=== PATIENT | female | born 1950 | race Hispanic/Latino ===

== ENCOUNTER 2016-11-20 14:26 | Emergency (ER) | payer MEDICARE ==
[2016-11-20 14:32] VITALS: BP 134/78; PULSE 96; RESP 18; TEMP 97.6; O2SAT 100
[2016-11-20] MEDS ORDERED: Lidocaine 1% (10 ml) Inj INFIL STA (14:51)
[2016-11-20] MEDS ORDERED: Lidocaine 1% Inj (20ml) ONE (14:55)
[2016-11-20] MEDS ORDERED: TDAP Vaccine 0.5 mL Syr IM ONE (15:37)
--- NOTE | 2016-11-20 15:46 | ED PDOC ---
HPI: Trauma/Fall - HPI Time Seen by Provider: 11/20/16 14:41 Chief Complaint (Nursing): Trauma Chief Complaint (Provider): Trauma - Multisystem History Per: Patient History/Exam Limitations: no limitations Injury Occurred (Timing): Just Before Arrival Location Of Injury: Left: Face (Left cheek and upper lip ), Anterior: Face Additional Complaint(s): 14:41 Pilar Virk, 66 year old female, presents to the ED with an injury to her face occurring after she tripped on a sidewalk just prior to arrival. She experienced an abrasion on her upper lip and left cheek as well as a laceration on the inside of her upper lip. The patient denies any loss of consciousness following the accident. Tetanus vaccination is not up to date. PMD: None provided Past Medical History Reviewed: Historical Data, Nursing Documentation, Vital Signs Vital Signs: Last Vital Signs Temp 97.6 F 11/20/16 14:29 Pulse 96 H 11/20/16 14:29 Resp 18 11/20/16 14:29 BP 134/78 11/20/16 14:29 Pulse Ox 100 11/20/16 14:29 - Medical History PMH: Hyperlipidemia, Hyperthyroidism - Family History Family History: States: Unknown Family Hx - Immunization History Hx Tetanus Toxoid Vaccination: No (Not up to date) - Allergies Allergies/Adverse Reactions: Allergies Allergy/AdvReac Type Severity Reaction Status Date / Time Sulfa (Sulfonamide Allergy RASH Verified 11/20/16 14:29 Antibiotics) Review of Systems ENT: Positive for: Other (abrasion to upper lip/left cheek; laceration on inside of upper lip ) Gastrointestinal: Negative for: Vomiting Neurological: Negative for: Other (Denies any LOC) Physical Exam - Reviewed Nursing Documentation Reviewed: Yes Vital Signs Reviewed: Yes - Physical Exam Appears: Positive for: No Acute Distress Head Exam: Positive for: ATRAUMATIC, NORMOCEPHALIC Skin: Positive for: Normal Color, Warm, Dry Eye Exam: Positive for: Normal appearance, EOMI, PERRL ENT: Positive for: Other (abrasion on upper lip/left cheek; laceration on inside of upper lip; dentition intact) Neck: Positive for: Normal, Painless ROM, Supple Neurologic/Psych: Positive for: Alert, nutritionalist II-XII (intact), Oriented, Gait ( steady). Negative for: Motor/Sensory Deficits - ECG O2 Sat by Pulse Oximetry: 100 (RA) Pulse Ox Interpretation: Normal Medical Decision Making Medical Decision Makin:41 Initial Impression: Lip laceration and abrasion to upper lip and left cheek. Initial Plan: * Laceration repair * TDAP 0.5 mL IM Laceration repair performed by [employer] student, under the direct supervision of this provider, see procedure note for additional details. Scribe Attestation: Documented by Cece Baumann, training under Evelyn Zimmerman, acting as a scribe for Cynthia Archuleta PA-C. Provider Scribe Attestation: All medical record entries made by the Scribe were at my direction and personally dictated by me. I have reviewed the chart and agree that the record accurately reflects my personal performance of the history, physical exam, medical decision making, and the department course for this patient. I have also personally directed, reviewed, and agree with the discharge instructions and disposition. Procedures - Time-Out Type of Procedure: Laceration repair Site of Procedure: Inside of upper lip Correct Patient (with visual ID + MR# on ID Band): Yes Correct Procedure: Yes Correct Site Marked: Yes PA/Tech: [employer] student Ellen Hidalgo, under direct supervision of Cynthia Archuleta PA-C - Laceration/Wound Repair Inside of Upper Lip Wound Length (cm): 1.5 Wound's Depth, Shape: superficial, irregular Wound Explored: clean Betadine Prep?: Yes Anesthesia: 1% Lidocaine Volume Anesthetic (ccs): 1 (unable to enter non-integer value; 0.5 cc used) Wound Repaired With: Sutures Suture Size/Type: 5:0 (chromic) Number of Sutures: 4 Layer Closure?: No Wound Complexity: Simple Sterile Dressing Applied?: No Splint Applied?: No Sling Applied?: No Progress: Good approximation. Patient tolerated procedure well with no immediate complications. Disposition - Clinical Impression Clinical Impression: Head injury, Lip laceration, Tetanus toxoid vaccination administered at current visit - Disposition Referrals: [facility] [Outside] Disposition: Routine/Home Disposition Time: 16:29 Condition: STABLE Additional Instructions: Ice area. Motrin for pain. F/u as needed. Instructions: Care For Your Absorbable Stitches (ED)
== END 2016-11-20 16:30 | disposition home or self-care (01) ==
LOC: H.ER 14:26
DX: S09.90XA Unspecified injury of head, initial encounter (principal); S01.511A Laceration without foreign body of lip, initial encounter; Z23 Encounter for immunization; W01.0XXA Fall on same level from slipping, tripping and stumbling without subsequent striking against object, initial encounter; Y93.01 Activity, walking, marching and hiking; Y92.480 Sidewalk as the place of occurrence of the external cause

== ENCOUNTER 2017-10-17 18:21 | Emergency (ER) | payer MEDICARE ==
[2017-10-17 18:34] VITALS: BP 130/87; PULSE 107; RESP 16; TEMP 100.4; O2SAT 98
[2017-10-17] MEDS ORDERED: Sodium Chloride 0.9% 1,000 ML IV STA (19:01)
[2017-10-17 19:45] LABS: BASO % 0.2 % (0.0-2.0); HEMOGLOBIN 11.8 g/dL (12.0-16.0); LYMPH # 0.5 K/uL (1.0-4.3); LYMPH % 3.6 % (20.0-40.0); MEAN CORPUSCULAR HEMOGLOBIN 29.2 pg (27.0-31.0); MEAN CORPUSCULAR HGB CONC 33.5 g/dL (33.0-37.0); MEAN PLATELET VOLUME 8.4 fl (7.2-11.7); MONO # 0.7 K/uL (0.0-0.8); MONO % 4.8 % (0.0-10.0); NEUT # 13.7 K/uL (1.8-7.0); NEUT % 91.4 % (50.0-75.0); PLATELET COUNT 299 K/uL (130-400); RBC 4.05 Mil/uL (3.80-5.20); RED CELL DISTRIBUTION WIDTH 12.7 % (11.5-14.5)
[2017-10-17 19:58] LABS: ALB/GLOB RATIO 1.1 (1.0-2.1); ALBUMIN 3.6 g/dL (3.5-5.0); ALT/SGPT 58 U/L (9-52); AST/SGOT 28 U/L (14-36); BLOOD UREA NITROGEN 17 mg/dl (7-17); CALCIUM 8.7 mg/dL (8.4-10.2); GFR AFRICAN-AMERICAN > 60; GFR NON-AFRICAN AMERICAN > 60
[2017-10-17 21:30] LABS: ANISOCYTOSIS SLIGHT; BANDS 3 % (0-2); HYPOCHROMIC SLIGHT; LYMPHOCYTE 6 % (20-50); MICROCYTOSIS SLIGHT; MONOCYTE 5 % (0-10); NEUTROPHIL 86 % (42-75); PLATELET ESTIMATE NORMAL (NORMAL); POIKILOCYTOSIS SLIGHT; TOTAL CELLS COUNTED 100
--- NOTE | 2017-10-17 21:53 | ED PDOC ---
HPI: Abdomen Time Seen by Provider: 10/17/17 18:36 Chief Complaint (Nursing): GI Problem Chief Complaint (Provider): GI Problem History Per: Patient History/Exam Limitations: no limitations Onset/Duration Of Symptoms: Days Current Symptoms Are (Timing): Still Present Additional Complaint(s): 67 y/o female with no significant past medical history, who presents to the ED for evaluation of nausea and vomiting x1 day. Patient reports she had a pancreatic cyst removed last week by Dr. Schneider in [facility]. Patient also reports low grade fever. Denies urinary or respiratory symptoms. Denies other medical problems. PMD: Dr. Schneider [phone] Past Medical History Reviewed: Historical Data, Nursing Documentation, Vital Signs Vital Signs: Last Vital Signs Temp 100.4 F H 10/17/17 18:29 Pulse 107 H 10/17/17 18:29 Resp 16 10/17/17 18:29 BP 130/87 10/17/17 18:29 Pulse Ox 98 10/17/17 21:53 - Medical History PMH: Hyperlipidemia, Hyperthyroidism - Surgical History Other surgeries: ovarian cyst removal - Family History Family History: States: Unknown Family Hx - Immunization History Hx Tetanus Toxoid Vaccination: No (Not up to date) - Allergies Allergies/Adverse Reactions: Allergies Allergy/AdvReac Type Severity Reaction Status Date / Time Sulfa (Sulfonamide Allergy RASH Verified 10/17/17 18:28 Antibiotics) Review of Systems ROS Statement: Except As Marked, All Systems Reviewed And Found Negative Constitutional: Positive for: Fever Respiratory: Negative for: Cough, Shortness of Breath Gastrointestinal: Positive for: Nausea, Vomiting. Negative for: Abdominal Pain Genitourinary Female: Negative for: Dysuria, Frequency, Incontinence Physical Exam - Reviewed Nursing Documentation Reviewed: Yes Vital Signs Reviewed: Yes - Physical Exam Appears: Positive for: Non-toxic, No Acute Distress Head Exam: Positive for: ATRAUMATIC, NORMAL INSPECTION, NORMOCEPHALIC Skin: Positive for: Normal Color, Warm, Dry. Negative for: Rash Eye Exam: Positive for: EOMI, Normal appearance, PERRL ENT: Positive for: Other (mucous membranes dry) Neck: Positive for: Normal, Painless ROM, Supple Cardiovascular/Chest: Positive for: Regular Rate, Rhythm. Negative for: Murmur Respiratory: Positive for: Normal Breath Sounds. Negative for: Respiratory Distress Gastrointestinal/Abdominal: Positive for: Normal Exam, Bowel Sounds, Soft. Negative for: Tenderness Back: Positive for: Normal Inspection. Negative for: L CVA Tenderness, R CVA Tenderness, Vertebral Tenderness Extremity: Positive for: Normal ROM. Negative for: Pedal Edema, Deformity Neurologic/Psych: Positive for: Alert, Oriented. Negative for: Motor/Sensory Deficits - Laboratory Results Result Diagrams: 10/17/17 19:35 10/17/17 19:35 - ECG O2 Sat by Pulse Oximetry: 98 (RA) Pulse Ox Interpretation: Normal Medical Decision Making Medical Decision Making: Time: 19:00 Initial Impression: nausea and vomiting Initial Plan: --CMP --CBC w/ differential --Sodium Chloride 1,000 mls/hr --Reevaluation Time: 20:30 --Spoke with Dr. Veliz ([phone]), patient's surgeon in [facility], who said to check patient's urine and is not concerned about patient's borderline fever. --Urine C&S --Urinalysis --Blood culture --Reevaluation Scribe Attestation: Documented by Hugh Dunn, acting as a scribe for Ej Estrada MD. Provider Scribe Attestation: All medical record entries made by the Scribe were at my direction and personally dictated by me. I have reviewed the chart and agree that the record accurately reflects my personal performance of the history, physical exam, medical decision making, and the department course for this patient. I have also personally directed, reviewed, and agree with the discharge instructions and disposition. Disposition - Disposition Forms: [employer] (Citizen [place])
[2017-10-17 22:07] LABS: SQUAMOUS EPITHIAL 5 /hpf (0-5); URINE BACTERIA RARE (<OCC); URINE BILIRUBIN NEGATIVE (NEGATIVE); URINE BLOOD NEGATIVE (NEGATIVE); URINE CLARITY SLIGHTY-CLOUDY (Clear); URINE COLOR YELLOW (YELLOW); URINE GLUCOSE (UA) NEG (Normal); URINE LEUKOCYTE ESTERASE NEG Leu/uL (Negative); URINE PROTEIN NEGATIVE (NEGATIVE)
== END 2017-10-17 22:19 | disposition home or self-care (01) ==
LOC: H.ER 18:21
DX: R11.2 Nausea with vomiting, unspecified (principal)

== ENCOUNTER 2017-10-20 09:10 | Inpatient (IN) | payer MEDICARE ==
[2017-10-20] MEDS ORDERED: Sodium Chloride 0.9% 1,000 ML IV STA ×2 (09:44→12:16)
--- NOTE | 2017-10-20 09:57 | ED PDOC ---
HPI: Abdomen Time Seen by Provider: 10/20/17 09:24 Chief Complaint (Nursing): Fever History Per: Patient, EMS History/Exam Limitations: no limitations Onset/Duration Of Symptoms: Other (x this morning) Current Symptoms Are (Timing): Still Present Additional Complaint(s): Ms. Quezada is a 67 year old female who presents to the ED via EMS complaining of fever, nausea and drainage from surgical wound since this morning. Temperature measured 102.6 at home. Patient is s/p pancreatic head re-section for pancreatic cyst performed on October 07 at [facility]. Followed up with surgeon. Been on cephalexin post-op. Denies cough, dysuria. Normal bowel movement post-op PMD: Jose L Cho Past Medical History Reviewed: Historical Data, Nursing Documentation, Vital Signs Vital Signs: Last Vital Signs Temp 98.7 F 10/20/17 12:06 Pulse 122 H 10/20/17 11:44 Resp 19 10/20/17 11:44 BP 110/64 10/20/17 11:44 Pulse Ox 99 10/20/17 13:32 - Medical History PMH: Hyperlipidemia, Hyperthyroidism - Surgical History Other surgeries: pancreatic resection - Family History Family History: States: Unknown Family Hx - Immunization History Hx Tetanus Toxoid Vaccination: No (Not up to date) - Home Medications Home Medications: Ambulatory Orders Medication Instructions Recorded Cephalexin [Keflex] 1 cap PO Q12H 10/20/17 Cholecalciferol (Vitamin D3) 1 tab PO QWK 10/20/17 [Vitamin D3] Docusate Sodium [Colace] 1 cap PO TID 10/20/17 Famotidine [Pepcid] 40 mg PO DAILY 10/20/17 Lactobacillus Combination No.8 1 cap OD DAILY 10/20/17 [Adult Probiotic] Levothyroxine [Synthroid] 50 mcg PO DAILY 10/20/17 Lipase/Protease/Amylase [Creon Dr 1 cap PO TID 10/20/17 24,000 Units Capsule] Metoclopramide [Reglan] 1 tab PO Q8H PRN 10/20/17 Multivit-Minerals/Ferrous Fum 2 tbs PO DAILY 10/20/17 [Complete Multivit-Mineral Liq] Oxycodone HCl/Acetaminophen 1 tab PO Q4H PRN MDD 6 tabs 10/20/17 [Oxycodone-Acetaminophen 5-325] Simvastatin [Zocor] 20 mg PO DAILY 10/20/17 - Allergies Allergies/Adverse Reactions: Allergies Allergy/AdvReac Type Severity Reaction Status Date / Time Sulfa (Sulfonamide Allergy RASH Verified 10/20/17 09:14 Antibiotics) Review of Systems ROS Statement: Except As Marked, All Systems Reviewed And Found Negative Constitutional: Positive for: Fever Respiratory: Negative for: Cough Gastrointestinal: Positive for: Nausea, Other (Drainge from surgical wound s/p pancreatic resection) Genitourinary Female: Negative for: Dysuria Physical Exam - Reviewed Nursing Documentation Reviewed: Yes Vital Signs Reviewed: Yes - Physical Exam ENT: Positive for: Other (Mucous membrane is dry) Cardiovascular/Chest: Positive for: Tachycardia (135 bpm), Other (Regular rhythm ) Respiratory: Positive for: Normal Breath Sounds (Lungs clear bilaterally) Gastrointestinal/Abdominal: Positive for: Soft, Other (Erythema and tenderness at drainage site. Surgical wound intact. Mild yellow discharged from drainage site.) Extremity: Positive for: Normal ROM. Negative for: Calf Tenderness, Swelling Neurologic/Psych: Positive for: Alert, Oriented (x 3). Negative for: Motor/ Sensory Deficits - Laboratory Results Result Diagrams: 10/20/17 10:25 10/20/17 10:25 - ECG O2 Sat by Pulse Oximetry: 99 (RA) Pulse Ox Interpretation: Normal Medical Decision Making Medical Decision Making: Time: 09:43 Plan: - VBG Shock Panel - CT Abdominal and Pelvis IV Contrast Only - EKG - CBC - Portable Chest X-Ray - Sodium Chloride 0.9% 1,000 ml IV 200 mls/hr - Tylenol 325 mg Tab - Blood Culture - Urine Culture Time: 10:15 - Vancomycin Inj 1 gm Sodium Chloride 0.9% 250 ml IVPB ONCE - Zosyn 3.375 gm Sodium Chloride 0.9% 100 ml IVPB Q6 Time: 10:25 - Blood Culture Time: 11:32 - K-Dur 20 mEq ER Tab Time: 12:00 - Wound Culture and Gram Stain Time: 13:16 CT Abdominal and Pelvis IV Contrast Only FINDINGS: LOWER THORAX: There appears to be some minor bibasilar atelectasis and/or scarring. No focal consolidation. No evidence of effusion or basilar pneumothorax. LIVER: The liver is of borderline/mildly enlarged measuring approximately 19 cm in the CC dimension. There appears to be some mild fatty hepatic infiltration. To recent cholecystectomy as the gallbladder is not seen with any certainty. Clinical correlation with surgical history. There is a large approximately 4.0 x 3.65 x 3.2 cm elliptical shaped low- attenuation lesion within the left lobe liver that exhibits of lobulated borders and what appears represent some peripheral enhancement . Findings may represent a the large hemangioma. Follow-up triple phase CT scan of the liver could be performed to confirm on last there are prior imaging studies that were dedicated to work this lesion up in the past presumably at outside institutions as no prior examinations are available. Additionally there are multiple small round/elliptical shaped low-attenuation lesions scattered throughout the hepatic parenchyma May of which are too small characterize and could represent cysts. Note however that the next largest focus on is located in the left lobe of the liver and dorsal to the aforementioned suspected hemangioma measuring approximately approximately 17.6 mm however this focus exhibits Hounsfield units in the mid teens. GALLBLADDER AND BILE DUCTS: Gallbladder is not seen with any certainty. Clinical correlation with surgical history recommended PANCREAS: Status post resection pancreatic head. There is a small approximately 7.7 x 4.3 mm elliptical shaped low-attenuation focus in the pancreatic tail which is of uncertain etiology though could represent localized dilatation of the pancreatic duct which is visible of. The possibility of a cystic benign or malignant lesion of the pancreas not excluded. SPLEEN: Spleen exhibits normal size and attenuation pattern without mass collection or calcification. ADRENALS: Slightly nodular appearing adrenal glands bilaterally. Followup interval recommended to assess stability. KIDNEYS AND URETERS: Kidneys demonstrate symmetric nephrograms. There appears to be a tiny nonobstructing calcification upper pole right kidney. No evidence of hydronephrosis. Small approximately 10 mm elliptical shaped low-attenuation focus anterior cortex mid pole left kidney that may represent a hyperdense cyst on with Hounsfield units in the low 20s. BLADDER: Urinary bladder is incompletely distended which in part accounts for thick- walled appearance however small amount of air within the nondependent anterior portion of the urinary bladder is present. Cystitis must be considered unless there has been recent instrumentation. REPRODUCTIVE: Small small amount of free fluid in the adjacent to the uterus. APPENDIX: What could represent normal appendix seen on axial image number [id number]. No evidence to suggest acute appendicitis BOWEL: Evaluation of the bowel is limited due to the lack of oral contrast material. There is a distended thick-walled C-shaped loop of what is felt to represent proximal small bowel which may represent a portion of the duodenum and jejunum possibly mobilized during the prior recent surgery. However the exact segment of bowel is uncertain, and this could possibly a blind segment of bowel as there is a apparent linear suture line along or abutting the left posterior margin of this distended loop of bowel. There also appears to be some infiltration and fluid in the surgical bed of the since resected head of the pancreas and adjacent to the portal and splenic confluence. In addition, there is a small tract along the left parasagittal upper anterior abdominal wall which presumably represented a residual drainage tract from which a catheter was recently removed. Air and suspected small amount of fluid is felt be present seen along the course of the irregular tract with a small amount of air an fluid subjacent to the tract within the intraperitoneal cavity. There is mild on fusiform thickening and low attenuation of the left-sided rectus abdominis muscle likely postoperative in nature. Large amount stool seen throughout the colon consistent with fecal retention/ constipation. PERITONEUM: As above. LYMPH NODES: Unremarkable. No enlarged lymph nodes. VASCULATURE: No evidence of abdominal aortic or iliac artery aneurysms. The. BONES: No fracture or destructive lesion. OTHER FINDINGS: None. IMPRESSION: Status post resection head of the pancreas. Gallbladder is not seen with certainty ; clinical correlation with surgical history recommended. There is mild intrahepatic biliary ductal dilatation There is a distended thick-walled C-shaped loop of what is felt to represent proximal small bowel which may represent a portion of the duodenum and jejunum possibly mobilized during the prior recent surgery. However the exact segment of bowel is uncertain, and this could possibly a blind segment of bowel as there is a apparent linear suture line along or abutting the left posterior margin of this distended loop of bowel. There also appears to be some infiltration and fluid in the surgical bed of the since resected head of the pancreas and adjacent to the portal and splenic confluence. In addition, there is a small tract along the left parasagittal upper anterior abdominal wall which presumably represented a residual drainage tract from which a catheter was recently removed. Air and suspected small amount of fluid is felt be present seen along the course of the irregular tract with a small amount of air an fluid subjacent to the tract within the intraperitoneal cavity. There is mild on fusiform thickening and low attenuation of the left-sided rectus abdominis muscle likely postoperative in nature. Small amount of free fluid noted within the pelvis. Multiple low-attenuation lesions the largest in the left lobe probably represents hemangioma however followup on three-phase CT scan liver could be performed to confirm on less on recent CT scan performed. There is a small low-attenuation focus within the posterior pancreatic body/ tail region that probably represents localized prominence of the pancreatic duct however the possibility of a cystic benign or malignant lesion not excluded. Follow-up study studies at interval recommended. Note these findings were discussed with Dr. Aguilar at approximately 12:50 p.m. with written down and read back verification. Findings consistent with constipation. Thick-walled urinary bladder with small amount of intraluminal air ; rule out cystitis with urinalysis correlation. See above discussion for additional details and findings. Discussed with Dr. Nick carbajal for surgeon Dr. Heart at [facility]. Agrees to have pt admitted At [facility] as theie is no acute need for surgical intervention. Pt can be treated with IV antibiotics and once defervesced x 24 hrs can be followed by surgery at [facility]. Scribe Attestation: Documented by Antonino Andrews, acting as a scribe for Sai Aguilar MD Provider Scribe Attestation: All medical record entries made by the Scribe were at my direction and personally dictated by me. I have reviewed the chart and agree that the record accurately reflects my personal performance of the history, physical exam, medical decision making, and the department course for this patient. I have also personally directed, reviewed, and agree with the discharge instructions and disposition. Disposition - Clinical Impression Clinical Impression: Sepsis, Intra-abdominal infection - Patient ED Disposition Is Patient to be Admitted: Yes - Disposition Disposition Time: 13:49 Condition: FAIR Forms: [employer] ([place]ian) - Pt Status Changed To: Hospital Disposition Of: Inpatient - Admit Certification Admit to Inpatient:: After my assessment, the patient will require hospitalization for at least two midnights. This is because of the severity of symptoms shown, intensity of services needed, and/or the medical risk in this patient being treated as an outpatient. - POA Present On Arrival: None
[2017-10-20] MEDS ORDERED: Iohexol 300 100 ML IJ ONE (10:01)
[2017-10-20 10:08] LABS: VENOUS BLOOD GAS PCO2 32 mmHg (40-60); VENOUS BLOOD GAS PO2 28 mm/Hg (30-55); VENOUS BLOOD PH 7.51 (7.32-7.43)
[2017-10-20] MEDS ORDERED: Piperacillin/Tazobact 3.375 gm Inj IVPB ONE ×2 (10:26→16:15)
[2017-10-20] MEDS ORDERED: Piperacillin/Tazobact 3.375 GM in Sodium Chloride 0.9% 100 ML IVPB STA (10:28)
[2017-10-20 10:56] LABS: BASO % 0.2 % (0.0-2.0); EOS % 0.1 % (0.0-4.0); HEMOGLOBIN 11.7 g/dL (12.0-16.0); LYMPH # 0.1 K/uL (1.0-4.3); LYMPH % 2.6 % (20.0-40.0); MEAN CELL VOLUME 86.3 fl (81.0-99.0); MEAN CORPUSCULAR HEMOGLOBIN 29.1 pg (27.0-31.0); MEAN CORPUSCULAR HGB CONC 33.8 g/dL (33.0-37.0); MEAN PLATELET VOLUME 9.1 fl (7.2-11.7); MONO % 0.6 % (0.0-10.0); NEUT # 4.9 K/uL (1.8-7.0); NEUT % 96.5 % (50.0-75.0); NRBC % 0.1 % (0.0-0.0); PLATELET COUNT 262 K/uL (130-400); RED CELL DISTRIBUTION WIDTH 12.9 % (11.5-14.5)
--- NOTE | 2017-10-20 11:14 | RAD ---
HISTORY: Cough COMPARISON: No prior study available for comparison FINDINGS: LUNGS: Bilateral nodular densities in the right lower lobe at and left lateral chest wall consistent with nipple shadow artifact. Suspect minimal biapical pleural thickening left greater than right PLEURA: No significant pleural effusion identified, no pneumothorax apparent. CARDIOVASCULAR: Normal. OSSEOUS STRUCTURES: Prominent appearing right 1st costochondral junction felt be present. VISUALIZED UPPER ABDOMEN: Normal. OTHER FINDINGS: None. IMPRESSION: No acute infiltrates.
[2017-10-20 11:26] LABS: WHITE BLOOD COUNT 5.1 K/uL (4.8-10.8)
[2017-10-20 11:29] LABS: BLOOD UREA NITROGEN 14 mg/dl (7-17); GFR AFRICAN-AMERICAN > 60; GFR NON-AFRICAN AMERICAN > 60
[2017-10-20 11:30] LABS: ALBUMIN 3.3 g/dL (3.5-5.0); ALT/SGPT 69 U/L (9-52); AST/SGOT 80 U/L (14-36); CALCIUM 8.4 mg/dL (8.4-10.2)
[2017-10-20] MEDS ORDERED: Potassium Chloride 20 mEq ER Tab PO ONE ×2 (11:32→12:15)
[2017-10-20 12:49] LABS: BANDS 4 % (0-2); LYMPHOCYTE 1 % (20-50); MONOCYTE 1 % (0-10); NEUTROPHIL 94 % (42-75); TOTAL CELLS COUNTED 100
[2017-10-20 12:54] LABS: HYPOCHROMIC SLIGHT; TARGET CELLS SLIGHT
[2017-10-20 12:55] LABS: PLATELET ESTIMATE NORMAL (NORMAL); POLYCHROMIC SLIGHT
--- NOTE | 2017-10-20 13:18 | CT ---
PROCEDURE: CT scan abdomen pelvis dated 10/20/2017 HISTORY: post op r/o abscess COMPARISON: No prior study available for comparison TECHNIQUE: Contiguous axial images of the abdomen and pelvis performed following oral and intravenous injection of approximately 95 cc Omnipaque 300 contrast material. Two dimensional sagittal and coronal reformats generated. Radiation dose: Total exam DLP = This CT exam was performed using one or more of the following dose reduction techniques: Automated exposure control, adjustment of the mA and/or kV according to patient size, and/or use of iterative reconstruction technique. FINDINGS: LOWER THORAX: There appears to be some minor bibasilar atelectasis and/or scarring. No focal consolidation. No evidence of effusion or basilar pneumothorax. LIVER: The liver is of borderline/mildly enlarged measuring approximately 19 cm in the CC dimension. There appears to be some mild fatty hepatic infiltration. To recent cholecystectomy as the gallbladder is not seen with any certainty. Clinical correlation with surgical history. There is a large approximately 4.0 x 3.65 x 3.2 cm elliptical shaped low-attenuation lesion within the left lobe liver that exhibits of lobulated borders and what appears represent some peripheral enhancement . Findings may represent a the large hemangioma. Follow-up triple phase CT scan of the liver could be performed to confirm on last there are prior imaging studies that were dedicated to work this lesion up in the past presumably at outside institutions as no prior examinations are available. Additionally there are multiple small round/elliptical shaped low-attenuation lesions scattered throughout the hepatic parenchyma May of which are too small characterize and could represent cysts. Note however that the next largest focus on is located in the left lobe of the liver and dorsal to the aforementioned suspected hemangioma measuring approximately approximately 17.6 mm however this focus exhibits Hounsfield units in the mid teens. GALLBLADDER AND BILE DUCTS: Gallbladder is not seen with any certainty. Clinical correlation with surgical history recommended PANCREAS: Status post resection pancreatic head. There is a small approximately 7.7 x 4.3 mm elliptical shaped low-attenuation focus in the pancreatic tail which is of uncertain etiology though could represent localized dilatation of the pancreatic duct which is visible of. The possibility of a cystic benign or malignant lesion of the pancreas not excluded. SPLEEN: Spleen exhibits normal size and attenuation pattern without mass collection or calcification. ADRENALS: Slightly nodular appearing adrenal glands bilaterally. Followup interval recommended to assess stability. KIDNEYS AND URETERS: Kidneys demonstrate symmetric nephrograms. There appears to be a tiny nonobstructing calcification upper pole right kidney. No evidence of hydronephrosis. Small approximately 10 mm elliptical shaped low-attenuation focus anterior cortex mid pole left kidney that may represent a hyperdense cyst on with Hounsfield units in the low 20s. BLADDER: Urinary bladder is incompletely distended which in part accounts for thick-walled appearance however small amount of air within the nondependent anterior portion of the urinary bladder is present. Cystitis must be considered unless there has been recent instrumentation. REPRODUCTIVE: Small small amount of free fluid in the adjacent to the uterus. APPENDIX: What could represent normal appendix seen on axial image number [id number]. No evidence to suggest acute appendicitis BOWEL: Evaluation of the bowel is limited due to the lack of oral contrast material. There is a distended thick-walled C-shaped loop of what is felt to represent proximal small bowel which may represent a portion of the duodenum and jejunum possibly mobilized during the prior recent surgery. However the exact segment of bowel is uncertain, and this could possibly a blind segment of bowel as there is a apparent linear suture line along or abutting the left posterior margin of this distended loop of bowel. There also appears to be some infiltration and fluid in the surgical bed of the since resected head of the pancreas and adjacent to the portal and splenic confluence. In addition, there is a small tract along the left parasagittal upper anterior abdominal wall which presumably represented a residual drainage tract from which a catheter was recently removed. Air and suspected small amount of fluid is felt be present seen along the course of the irregular tract with a small amount of air an fluid subjacent to the tract within the intraperitoneal cavity. There is mild on fusiform thickening and low attenuation of the left-sided rectus abdominis muscle likely postoperative in nature. Large amount stool seen throughout the colon consistent with fecal retention/constipation. PERITONEUM: As above. LYMPH NODES: Unremarkable. No enlarged lymph nodes. VASCULATURE: No evidence of abdominal aortic or iliac artery aneurysms. The. BONES: No fracture or destructive lesion. OTHER FINDINGS: None. IMPRESSION: Status post resection head of the pancreas. Gallbladder is not seen with certainty ; clinical correlation with surgical history recommended. There is mild intrahepatic biliary ductal dilatation There is a distended thick-walled C-shaped loop of what is felt to represent proximal small bowel which may represent a portion of the duodenum and jejunum possibly mobilized during the prior recent surgery. However the exact segment of bowel is uncertain, and this could possibly a blind segment of bowel as there is a apparent linear suture line along or abutting the left posterior margin of this distended loop of bowel. There also appears to be some infiltration and fluid in the surgical bed of the since resected head of the pancreas and adjacent to the portal and splenic confluence. In addition, there is a small tract along the left parasagittal upper anterior abdominal wall which presumably represented a residual drainage tract from which a catheter was recently removed. Air and suspected small amount of fluid is felt be present seen along the course of the irregular tract with a small amount of air an fluid subjacent to the tract within the intraperitoneal cavity. There is mild on fusiform thickening and low attenuation of the left-sided rectus abdominis muscle likely postoperative in nature. Small amount of free fluid noted within the pelvis. Multiple low-attenuation lesions the largest in the left lobe probably represents hemangioma however followup on three-phase CT scan liver could be performed to confirm on less on recent CT scan performed. There is a small low-attenuation focus within the posterior pancreatic body/tail region that probably represents localized prominence of the pancreatic duct however the possibility of a cystic benign or malignant lesion not excluded. Follow-up study studies at interval recommended. Note these findings were discussed with Dr. Aguilar at approximately 12:50 p.m. with written down and read back verification. Findings consistent with constipation. Thick-walled urinary bladder with small amount of intraluminal air ; rule out cystitis with urinalysis correlation. See above discussion for additional details and findings.
[2017-10-20 14:05] LABS: PLATELET CLUMPS PRESENT
--- NOTE | 2017-10-20 14:41 | CP.PCM.HP ---
History of Present Illness - History of Present Illness History of Present Illness: 67 yo female with history of Hypothyroidism, GERD and Pancreatic Cyst came in because of fever, chills, nausea and vomiting since last night. Patient had Whipple's procedure at [facility] in October 07 because of Pancreatic Cyst which was getting bigger. Cyst turned out to be benign. Post op days were uneventful and she was discharged in stable condition with a surgical drain on October 14. 2 days after discharge, patient started to have nausea and vomiting associated with low grade fever. She was seen in [facility] ER on October 17 and was found to be dehydrated. Patient's surgeon, Dr Veliz was called and did not advise admission but recommended just to hydrate patient. She was seen the next day by the surgeon and the drain was removed. She was started on PO Cephalexin 500mg BID. Last night nausea and vomiting recurred accompanied with fever and chills. The site of the drain tube also continued to leak brownish fluid. Patient denied abdominal pain or diarrhea. Present on Admission - Present on Admission Any Indicators Present on Admission: No History of DVT/PE: No History of Uncontrolled Diabetes: No Urinary Catheter: No Decubitus Ulcer Present: No Review of Systems - Review of Systems All systems: reviewed and no additional remarkable complaints except (aside from those mentioned above, 12 point system review were negative by me) Past Patient History - Tetanus Immunizations Tetanus Immunization: Unknown - Past Social History Smoking Status: Never Smoked Alcohol: None Drugs: Denies Home Situation {Lives}: With Family - CARDIAC Hx Cardiac Disorders: No - PULMONARY Hx Respiratory Disorders: No - NEUROLOGICAL Hx Neurological Disorder: No - HEENT Hx HEENT Problems: No - RENAL Hx Chronic Kidney Disease: No - ENDOCRINE/METABOLIC Hx Hyperthyroidism: Yes - HEMATOLOGICAL/ONCOLOGICAL Hx Blood Disorders: No - INTEGUMENTARY Hx Dermatological Problems: No - MUSCULOSKELETAL/RHEUMATOLOGICAL Hx Musculoskeletal Disorders: No - GASTROINTESTINAL Hx Gastroesophageal Reflux: Yes Other/Comment: pancreatic cyst - GENITOURINARY/GYNECOLOGICAL Hx Genitourinary Disorders: No - PSYCHIATRIC Hx Psychophysiologic Disorder: No Hx Substance Use: No - SURGICAL HISTORY Hx Surgeries: Yes Other/Comment: whipple procedure 10/07/17 - ANESTHESIA Hx Anesthesia: Yes Hx Anesthesia Reactions: No Meds Allergies/Adverse Reactions: Allergies Allergy/AdvReac Type Severity Reaction Status Date / Time Sulfa (Sulfonamide Allergy RASH Verified 10/20/17 09:14 Antibiotics) Physical Exam - Constitutional Appears: No Acute Distress - Head Exam Head Exam: ATRAUMATIC - Eye Exam Eye Exam: absent: Scleral icterus - ENT Exam ENT Exam: Mucous Membranes Moist - Neck Exam Neck exam: Negative for: Meningismus - Respiratory Exam Respiratory Exam: absent: Rales, Rhonchi, Wheezes, Respiratory Distress - Cardiovascular Exam Cardiovascular Exam: REGULAR RHYTHM, +S1, +S2 - GI/Abdominal Exam GI & Abdominal Exam: Soft. absent: Guarding, Tenderness Additional comments: site of removed surgical drain tube sorrounded with erythema with crusty brown drainage in the center, no tenderness - Rectal Exam Rectal Exam: Deferred - Extremities Exam Extremities exam: Negative for: calf tenderness, pedal edema - Back Exam Back exam: absent: tenderness - Neurological Exam Neurological exam: Alert, Oriented x3 - Psychiatric Exam Psychiatric exam: Normal Affect - Skin Skin Exam: Dry, Intact Results - Vital Signs Recent Vital Signs: Last Vital Signs Temp 98.7 F 10/20/17 12:06 Pulse 122 H 10/20/17 11:44 Resp 19 10/20/17 11:44 BP 110/64 10/20/17 11:44 Pulse Ox 99 10/20/17 13:50 - Labs Result Diagrams: 10/20/17 10:25 10/20/17 10:25 Labs: Laboratory Results - last 24 hr 10/20/17 10/20/17 10/20/17 10:02 10:25 10:25 WBC 5.1 D RBC 4.00 Hgb 11.7 L Hct 34.5 MCV 86.3 MCH 29.1 MCHC 33.8 RDW 12.9 Plt Count 262 MPV 9.1 Neut % (Auto) 96.5 H Lymph % (Auto) 2.6 L [place] % (Auto) 0.6 Eos % (Auto) 0.1 Baso % (Auto) 0.2 Neut # (Auto) 4.9 Lymph # (Auto) 0.1 L [place] # (Auto) 0.0 Eos # (Auto) 0.0 Baso # (Auto) 0.0 Neutrophils % (Manual) 94 H Band Neutrophils % 4 H Lymphocytes % (Manual) 1 L Monocytes % (Manual) 1 Platelet Estimate Normal Plt Clumps, EDTA Present Polychromasia Slight Hypochromasia (manual) Slight Target Cells Slight pO2 28 L VBG pH 7.51 H VBG pCO2 32 L VBG HCO3 26.3 VBG Total CO2 26.5 VBG O2 Sat (Calc) 67.4 H VBG Base Excess 3.0 H VBG Potassium 3.4 L Sodium 129.0 L 131 L Chloride 97.0 L 94 L Glucose 140 H Lactate 1.5 FiO2 21.0 Potassium 3.5 L Carbon Dioxide 25 Anion Gap 16 BUN 14 Creatinine 0.5 L Est GFR ( Amer) > 60 Est GFR (Non-Af Amer) > 60 Random Glucose 131 H Calcium 8.4 Total Bilirubin 1.0 AST 80 H D ALT 69 H Alkaline Phosphatase 156 H D Total Protein 6.7 Albumin 3.3 L Globulin 3.3 Albumin/Globulin Ratio 1.0 Lipase Venous Blood Potassium 3.4 L 10/20/17 12:40 WBC RBC Hgb Hct MCV MCH MCHC RDW Plt Count MPV Neut % (Auto) Lymph % (Auto) [place] % (Auto) Eos % (Auto) Baso % (Auto) Neut # (Auto) Lymph # (Auto) [place] # (Auto) Eos # (Auto) Baso # (Auto) Neutrophils % (Manual) Band Neutrophils % Lymphocytes % (Manual) Monocytes % (Manual) Platelet Estimate Plt Clumps, EDTA Polychromasia Hypochromasia (manual) Target Cells pO2 VBG pH VBG pCO2 VBG HCO3 VBG Total CO2 VBG O2 Sat (Calc) VBG Base Excess VBG Potassium Sodium Chloride Glucose Lactate FiO2 Potassium Carbon Dioxide Anion Gap BUN Creatinine Est GFR ( Amer) Est GFR (Non-Af Amer) Random Glucose Calcium Total Bilirubin AST ALT Alkaline Phosphatase Total Protein Albumin Globulin Albumin/Globulin Ratio Lipase 155 Venous Blood Potassium Assessment & Plan - Assessment and Plan (Free Text) Assessment: 67 yo female with history of Hypothyroidism, GERD and Pancreatic Cyst (Post Whipple's Procedure) came in because of fever, chills, nausea and vomiting since last night. 1. Infected Surgical wound Blood culture Wound culture Vancomycin 1gm IV q 12hrs Zosyn 3.375gm IV q 6hrs Bacid 1 tab PO BID surgical consult with Dr Roland 2. Hypothyroid continue Levothyroxine 3. GERD Pepcid 40mg PO daily 4. DVT prophylaxis venodyne boots while in bed
[2017-10-20] MEDS ORDERED: Ergocalciferol 50,000 Intl Units Cap PO SCH (15:15)
[2017-10-20] MEDS: Levothyroxine 50 MCG TAB PO SCH (15:20)
[2017-10-20] MEDS ORDERED: Piperacillin/Tazobact 3.375 GM in Sodium Chloride 0.9% 100 ML IVPB SCH (16:00)
[2017-10-20] MEDS: Piperacillin/Tazobact 3.375 GM in Sodium Chloride 0.9% 100 ML IVPB SCH ×2 (16:23→22:13)
[2017-10-20 16:24] LABS: URINE BACTERIA RARE (<OCC); URINE BILIRUBIN NEGATIVE (NEGATIVE); URINE BLOOD NEGATIVE (NEGATIVE); URINE CLARITY SLIGHTY-CLOUDY (Clear); URINE COLOR YELLOW (YELLOW); URINE GLUCOSE (UA) NEG (Normal); URINE LEUKOCYTE ESTERASE NEG Leu/uL (Negative); URINE PROTEIN NEGATIVE (NEGATIVE)
[2017-10-20] MEDS: AMYLASE PO SCH (17:23)
[2017-10-20] MEDS: LIPASE PO SCH (17:23)
[2017-10-20] MEDS: PROTEASE PO SCH (17:23)
[2017-10-20] MEDS: Lactated Ringer's 1,000 ML IV SCH (22:39)
--- NOTE | 2017-10-20 22:54 | CP.PCM.CON ---
History of Present Illness - History of Present Illness History of Present Illness: Surgery Consult Note. Dr. Roland 67yo F with PMHx of Hypothyroid, GERD, Pancreatic Cyst s/p whipple on 10/07/[address] Veliz at [facility] here for evaluation of nausea/ vomiting and fevers. Patient also c/o previous abdominal drain site leaking yellow/brown fluid. She states that post-operatively she has been doing well with pain but has been having bouts of nausea/vomiting off and on. She was discharged home with abdominal drain on October 14 and then abdominal drain was removed on October 18 during her first post-op follow-up visit. Since the drain was removed, she has been having yellow/brown fluid leaking form the site. She denies any abdominal pain. She does report nausea/vomiting and decreased PO intake for the past 3 days. She started having fevers and chills at home and was prescribed a course of Oral Abx on Saturday, Keflex. She reports that fevers, chills and N/V has not improved so she came in for evaluation at [facility] ED. She reports that she has another follow-up appointment with Dr. Veliz on Thr , October 24. Denies any Chest pain, no SOB. No urinary complaints. Hepatobiliary Surgeon: Dr. Veliz at [facility] PMHx: Hypothyroid, GERD, Pancreatic cyst (s/p resection, bx-benign) PSHx: Whipple (October 07, 2017 at [facility]) Family Hx: non-contributory Social Hx: Denies tobacco, Denies ETOH, Denies illicit drugs. Lives with family Allergy: Sulfa Review of Systems - Review of Systems All systems: reviewed and no additional remarkable complaints except - Constitutional Constitutional: Anorexia, Chills, Fever - Cardiovascular Cardiovascular: absent: Chest Pain, Dyspnea - Respiratory Respiratory: absent: Cough, Dyspnea - Gastrointestinal Gastrointestinal: Nausea, Vomiting. absent: Abdominal Pain - Genitourinary Genitourinary: absent: Difficulty Urinating, Dysuria - Integumentary Additional comments: Previous abdominal drain site with yellow/brown discharge Past Patient History - Tetanus Immunizations Tetanus Immunization: Unknown - Past Medical History & Family History Past Medical History?: Yes - Past Social History Smoking Status: Never Smoked Alcohol: None Drugs: Denies Home Situation {Lives}: With Family - CARDIAC Hx Cardiac Disorders: Yes - PULMONARY Hx Respiratory Disorders: No - NEUROLOGICAL Hx Neurological Disorder: No - HEENT Hx HEENT Problems: No - RENAL Hx Chronic Kidney Disease: No - ENDOCRINE/METABOLIC Hx Endocrine Disorders: Yes - HEMATOLOGICAL/ONCOLOGICAL Hx Blood Disorders: No - INTEGUMENTARY Hx Dermatological Problems: No - MUSCULOSKELETAL/RHEUMATOLOGICAL Hx Musculoskeletal Disorders: No Hx Falls: No - GASTROINTESTINAL Hx Gastroesophageal Reflux: Yes Other/Comment: pancreatic cyst - GENITOURINARY/GYNECOLOGICAL Hx Genitourinary Disorders: No - PSYCHIATRIC Hx Psychophysiologic Disorder: No Hx Substance Use: No - SURGICAL HISTORY Hx Surgeries: Yes Other/Comment: whipple procedure 10/07/17 - ANESTHESIA Hx Anesthesia: Yes Hx Anesthesia Reactions: No Meds Allergies/Adverse Reactions: Allergies Allergy/AdvReac Type Severity Reaction Status Date / Time Sulfa (Sulfonamide Allergy RASH Verified 10/20/17 09:14 Antibiotics) - Medications Medications: Current Medications Acetaminophen (Tylenol 325mg Tab) 650 mg PO Q6 PRN PRN Reason: Fever >100.4 F Last Admin: 10/20/17 20:52 Dose: 650 mg Docusate Sodium (Colace) 100 mg PO BID [facility] Last Admin: 10/20/17 16:27 Dose: 100 mg Ergocalciferol (Drisdol 50,000 Intl Units Cap) 1 cap PO QWK [facility] Home Med (Lipase/Protease/Amylase [Creon Dr 24,000 Units Capsule]) 1 cap PO TID [facility] Last Admin: 10/20/17 17:23 Dose: 1 cap Vancomycin HCl 1 gm/ Sodium (Chloride) 250 mls @ 166.667 mls/hr IVPB Q12 [facility] PRN Reason: Protocol Last Admin: 10/20/17 22:12 Dose: 166.667 mls/hr Piperacillin Sod/Tazobactam (Sod 3.375 gm/ Sodium Chloride) 100 mls @ 100 mls/ hr IVPB Q6 [facility] PRN Reason: Protocol Last Admin: 10/20/17 22:13 Dose: 100 mls/hr Lactated Ringer's (Lactated Ringer's) 1,000 mls @ 125 mls/hr IV .Q8H [facility] Stop: 10/21/17 14:29 Last Admin: 10/20/17 22:39 Dose: 125 mls/hr Lactobacillus Acidophilus (Bacid Acidophilus) 1 cap PO BID [facility] Levothyroxine Sodium (Synthroid) 50 mcg PO DAILY@0630 [facility] Last Admin: 10/20/17 15:20 Dose: Not Given Metoclopramide HCl (Reglan) 10 mg PO Q8H PRN PRN Reason: Nausea/Vomiting Last Admin: 10/20/17 16:27 Dose: 10 mg Morphine Sulfate (Morphine) 2 mg IVP Q6 PRN PRN Reason: Pain, moderate (4-7) Ondansetron HCl (Zofran Inj) 4 mg IVP Q6 PRN PRN Reason: Nausea/Vomiting Pantoprazole Sodium (Protonix Ec Tab) 40 mg PO DAILY [facility] Physical Exam - Constitutional Appears: Non-toxic, No Acute Distress - Head Exam Head Exam: ATRAUMATIC, NORMAL INSPECTION, NORMOCEPHALIC - Eye Exam Eye Exam: EOMI, Normal appearance. absent: Scleral icterus - ENT Exam ENT Exam: Mucous Membranes Moist - Cardiovascular Exam Cardiovascular Exam: RRR. absent: JVD - GI/Abdominal Exam GI & Abdominal Exam: Soft. absent: Distended, Firm, Guarding, Rigid, Tenderness Additional comments: midline surgical site well healed scar. left lower quadrant small skin opening of previous abdominal drain with yellow/ brown fluid actively draining. No tenderness. No rebound, no guarding. soft, non-distended - Extremities Exam Extremities exam: Positive for: normal inspection. Negative for: calf tenderness - Back Exam Back exam: NORMAL INSPECTION - Neurological Exam Neurological exam: Alert, Oriented x3 - Psychiatric Exam Psychiatric exam: Normal Affect, Normal Mood Results - Vital Signs Recent Vital Signs: Last Vital Signs Temp 98.9 F 10/20/17 21:52 Pulse 95 H 10/20/17 21:52 Resp 95 H 10/20/17 21:52 BP 92/47 L 10/20/17 21:52 Pulse Ox 97 10/20/17 19:24 - Labs Result Diagrams: 10/20/17 10:25 10/20/17 10:25 Labs: Laboratory Results - last 24 hr 10/20/17 10/20/17 10/20/17 10:02 10:25 10:25 WBC 5.1 D RBC 4.00 Hgb 11.7 L Hct 34.5 MCV 86.3 MCH 29.1 MCHC 33.8 RDW 12.9 Plt Count 262 MPV 9.1 Neut % (Auto) 96.5 H Lymph % (Auto) 2.6 L [place] % (Auto) 0.6 Eos % (Auto) 0.1 Baso % (Auto) 0.2 Neut # (Auto) 4.9 Lymph # (Auto) 0.1 L [place] # (Auto) 0.0 Eos # (Auto) 0.0 Baso # (Auto) 0.0 Neutrophils % (Manual) 94 H Band Neutrophils % 4 H Lymphocytes % (Manual) 1 L Monocytes % (Manual) 1 Platelet Estimate Normal Plt Clumps, EDTA Present Polychromasia Slight Hypochromasia (manual) Slight Target Cells Slight pO2 28 L VBG pH 7.51 H VBG pCO2 32 L VBG HCO3 26.3 VBG Total CO2 26.5 VBG O2 Sat (Calc) 67.4 H VBG Base Excess 3.0 H VBG Potassium 3.4 L Sodium 129.0 L 131 L Chloride 97.0 L 94 L Glucose 140 H Lactate 1.5 FiO2 21.0 Potassium 3.5 L Carbon Dioxide 25 Anion Gap 16 BUN 14 Creatinine 0.5 L Est GFR ( Amer) > 60 Est GFR (Non-Af Amer) > 60 Random Glucose 131 H Calcium 8.4 Total Bilirubin 1.0 AST 80 H D ALT 69 H Alkaline Phosphatase 156 H D Total Protein 6.7 Albumin 3.3 L Globulin 3.3 Albumin/Globulin Ratio 1.0 Lipase Venous Blood Potassium 3.4 L Urine Color Urine Clarity Urine pH Ur Specific [place] Urine Protein Urine Glucose (UA) Urine Ketones Urine Blood Urine Nitrate Urine Bilirubin Urine Urobilinogen Ur Leukocyte Esterase Urine RBC (Auto) Urine Microscopic WBC Urine Bacteria 10/20/17 10/20/17 12:40 16:09 WBC RBC Hgb Hct MCV MCH MCHC RDW Plt Count MPV Neut % (Auto) Lymph % (Auto) [place] % (Auto) Eos % (Auto) Baso % (Auto) Neut # (Auto) Lymph # (Auto) [place] # (Auto) Eos # (Auto) Baso # (Auto) Neutrophils % (Manual) Band Neutrophils % Lymphocytes % (Manual) Monocytes % (Manual) Platelet Estimate Plt Clumps, EDTA Polychromasia Hypochromasia (manual) Target Cells pO2 VBG pH VBG pCO2 VBG HCO3 VBG Total CO2 VBG O2 Sat (Calc) VBG Base Excess VBG Potassium Sodium Chloride Glucose Lactate FiO2 Potassium Carbon Dioxide Anion Gap BUN Creatinine Est GFR ( Amer) Est GFR (Non-Af Amer) Random Glucose Calcium Total Bilirubin AST ALT Alkaline Phosphatase Total Protein Albumin Globulin Albumin/Globulin Ratio Lipase 155 Venous Blood Potassium Urine Color Yellow Urine Clarity Slighty-cloudy Urine pH 6.0 Ur Specific [place] 1.017 Urine Protein Negative Urine Glucose (UA) Neg Urine Ketones Trace Urine Blood Negative Urine Nitrate Negative Urine Bilirubin Negative Urine Urobilinogen 4.0 H Ur Leukocyte Esterase Neg Urine RBC (Auto) 6 H Urine Microscopic WBC 3 Urine Bacteria Rare Assessment & Plan - Assessment and Plan (Free Text) Assessment: 67[facility] F [facility] Post-operative course complicated by fever and biliary leak. - CT scan noted Plan: - No acute general surgery intervention warranted at this time - Patient should follow-up with her hepatobiliary surgeon for further management - Continue Abx and IVF as per primary team recs Further recs as per Dr. Luan Zhong PGY1 surgery pager: [phone]
[2017-10-21] MEDS: Piperacillin/Tazobact 3.375 GM in Sodium Chloride 0.9% 100 ML IVPB SCH ×4 (04:39→22:07)
[2017-10-21 05:41] LABS: BASO % 0.2 % (0.0-2.0); EOS % 0.2 % (0.0-4.0); HEMOGLOBIN 9.1 g/dL (12.0-16.0); LYMPH # 0.4 K/uL (1.0-4.3); MEAN CELL VOLUME 86.6 fl (81.0-99.0); MEAN CORPUSCULAR HEMOGLOBIN 29.6 pg (27.0-31.0); MEAN CORPUSCULAR HGB CONC 34.2 g/dL (33.0-37.0); MEAN PLATELET VOLUME 8.9 fl (7.2-11.7); MONO # 0.4 K/uL (0.0-0.8); MONO % 4.1 % (0.0-10.0); NEUT # 9.1 K/uL (1.8-7.0); NEUT % 91.5 % (50.0-75.0); NRBC % 0.2 % (0.0-0.0); PLATELET COUNT 205 K/uL (130-400); RBC 3.07 Mil/uL (3.80-5.20); RED CELL DISTRIBUTION WIDTH 12.9 % (11.5-14.5); WHITE BLOOD COUNT 9.9 K/uL (4.8-10.8)
[2017-10-21] MEDS: Levothyroxine 50 MCG TAB PO SCH (06:02)
[2017-10-21 06:43] LABS: ALB/GLOB RATIO 0.8 (1.0-2.1); ALBUMIN 2.1 g/dL (3.5-5.0); ALT/SGPT 68 U/L (9-52); AST/SGOT 73 U/L (14-36); BLOOD UREA NITROGEN 10 mg/dl (7-17); CALCIUM 6.8 mg/dL (8.4-10.2); GFR AFRICAN-AMERICAN > 60; GFR NON-AFRICAN AMERICAN > 60
[2017-10-21 07:50] LABS: LYMPHOCYTE 4 % (20-50); MONOCYTE 2 % (0-10); NEUTROPHIL 94 % (42-75); PLATELET ESTIMATE NORMAL (NORMAL); TOTAL CELLS COUNTED 100
[2017-10-21] MEDS: LIPASE PO SCH ×3 (08:19→16:44)
[2017-10-21] MEDS: PROTEASE PO SCH ×3 (08:19→16:44)
[2017-10-21] MEDS: Pantoprazole 40 mg EC Tab PO SCH (08:19)
[2017-10-21] MEDS: AMYLASE PO SCH ×3 (08:19→16:44)
[2017-10-21] MEDS: Lactobacillus Acidophilus 500 MU Cap PO SCH ×2 (08:21→16:44)
[2017-10-21] MEDS ORDERED: Pneumococcal 23-Valent Vaccine IM ONE (09:00)
--- NOTE | 2017-10-21 09:25 | CP.PCM.PN ---
<BenjaminAdeline - Last Filed: 10/21/17 09:23> Subjective - Date & Time of Evaluation Date of Evaluation: 10/21/17 Time of Evaluation: 09:23 - Subjective Subjective: General Surgery - DR. Roland Pt S&E. Overnight pt had another temp of 102F around 8pm. She received tylenol and has been afebrile since. Pt denies any complaints including abdominal pain, nausea or vomiting. She ate last night and tolerated well. Dressing from prior feeding tube site with small amt drainage. Objective - Vital Signs/Intake and Output Vital Signs (last 24 hours): Temp Pulse Resp BP Pulse Ox 98.3 F 95 H 19 99/57 L 100 10/21/17 08:00 10/21/17 08:00 10/21/17 08:00 10/21/17 08:00 10/21/17 08:00 Intake and Output: 10/21/17 10/21/17 06:59 18:59 Intake Total 2014 1100 Output Total Balance 2013 1100 - Medications Medications: Current Medications Acetaminophen (Tylenol 325mg Tab) 650 mg PO Q6 PRN PRN Reason: Fever >100.4 F Last Admin: 10/20/17 20:52 Dose: 650 mg Docusate Sodium (Colace) 100 mg PO BID [facility] Last Admin: 10/21/17 08:18 Dose: 100 mg Ergocalciferol (Drisdol 50,000 Intl Units Cap) 1 cap PO QWK [facility] Home Med (Lipase/Protease/Amylase [Creon Dr 24,000 Units Capsule]) 1 cap PO TID [facility] Last Admin: 10/21/17 08:19 Dose: 1 cap Vancomycin HCl 1 gm/ Sodium (Chloride) 250 mls @ 166.667 mls/hr IVPB Q12 [facility] PRN Reason: Protocol Last Admin: 10/21/17 08:21 Dose: 166.667 mls/hr Piperacillin Sod/Tazobactam (Sod 3.375 gm/ Sodium Chloride) 100 mls @ 100 mls/ hr IVPB Q6 [facility] PRN Reason: Protocol Last Admin: 10/21/17 04:39 Dose: 100 mls/hr Lactated Ringer's (Lactated Ringer's) 1,000 mls @ 125 mls/hr IV .Q8H [facility] Stop: 10/21/17 14:29 Last Admin: 10/20/17 22:39 Dose: 125 mls/hr Lactobacillus Acidophilus (Bacid Acidophilus) 1 cap PO BID [facility] Last Admin: 10/21/17 08:21 Dose: 1 cap Levothyroxine Sodium (Synthroid) 50 mcg PO DAILY@0630 [facility] Last Admin: 10/21/17 06:02 Dose: 50 mcg Metoclopramide HCl (Reglan) 10 mg PO Q8H PRN PRN Reason: Nausea/Vomiting Last Admin: 10/21/17 07:38 Dose: 10 mg Morphine Sulfate (Morphine) 2 mg IVP Q6 PRN PRN Reason: Pain, moderate (4-7) Ondansetron HCl (Zofran Inj) 4 mg IVP Q6 PRN PRN Reason: Nausea/Vomiting Pantoprazole Sodium (Protonix Ec Tab) 40 mg PO DAILY [facility] Last Admin: 10/21/17 08:19 Dose: 40 mg - Labs Labs: 10/21/17 04:50 10/21/17 04:50 - Constitutional Appears: No Acute Distress - Head Exam Head Exam: ATRAUMATIC, NORMAL INSPECTION, NORMOCEPHALIC - Eye Exam Eye Exam: Normal appearance - Respiratory Exam Respiratory Exam: NORMAL BREATHING PATTERN. absent: Respiratory Distress - GI/Abdominal Exam GI & Abdominal Exam: Soft, Tenderness (mild ttp ). absent: Distended, Guarding , Rebound - Neurological Exam Neurological Exam: Alert, Oriented x3 - Psychiatric Exam Psychiatric exam: Normal Affect, Normal Mood - Skin Skin Exam: Dry, Intact Assessment and Plan - Assessment and Plan (Free Text) Assessment: 67yo F [facility], admitted w/ Post-op fever Plan: - No general surgery intervention - Patient should f/u with her hepatobiliary surgeon for further management - Continue management as per primary team - Surgery will sign-off, thank you for allowing us to participate in the care of this patient DW Dr. Umanzor <Franco Umanzor - Last Filed: 10/21/17 13:17> Subjective - Date & Time of Evaluation Time of Evaluation: 12:20 - Subjective Subjective: Patient was seen and examined at the bedside. Agree with resident's note above. Objective - Vital Signs/Intake and Output Vital Signs (last 24 hours): Temp Pulse Resp BP Pulse Ox 99.2 F 80 20 109/68 99 10/21/17 12:00 10/21/17 12:00 10/21/17 12:00 10/21/17 12:00 10/21/17 12:00 Intake and Output: 10/21/17 10/21/17 06:59 18:59 Intake Total 2014 2099 Output Total 1 Balance 2013 2099 - Medications Medications: Current Medications Acetaminophen (Tylenol 325mg Tab) 650 mg PO Q6 PRN PRN Reason: Fever >100.4 F Last Admin: 10/20/17 20:52 Dose: 650 mg Docusate Sodium (Colace) 100 mg PO BID [facility] Last Admin: 10/21/17 08:18 Dose: 100 mg Ergocalciferol (Drisdol 50,000 Intl Units Cap) 1 cap PO QWK [facility] Home Med (Lipase/Protease/Amylase [Creon Dr 24,000 Units Capsule]) 1 cap PO TID [facility] Last Admin: 10/21/17 12:17 Dose: 1 cap Vancomycin HCl 1 gm/ Sodium (Chloride) 250 mls @ 166.667 mls/hr IVPB Q12 [facility] PRN Reason: Protocol Last Admin: 10/21/17 08:21 Dose: 166.667 mls/hr Piperacillin Sod/Tazobactam (Sod 3.375 gm/ Sodium Chloride) 100 mls @ 100 mls/ hr IVPB Q6 [facility] PRN Reason: Protocol Last Admin: 10/21/17 09:40 Dose: 100 mls/hr Lactated Ringer's (Lactated Ringer's) 1,000 mls @ 125 mls/hr IV .Q8H [facility] Stop: 10/21/17 14:29 Last Admin: 10/20/17 22:39 Dose: 125 mls/hr Lactobacillus Acidophilus (Bacid Acidophilus) 1 cap PO BID [facility] Last Admin: 10/21/17 08:21 Dose: 1 cap Levothyroxine Sodium (Synthroid) 50 mcg PO DAILY@0630 [facility] Last Admin: 10/21/17 06:02 Dose: 50 mcg Metoclopramide HCl (Reglan) 10 mg PO Q8H PRN PRN Reason: Nausea/Vomiting Last Admin: 10/21/17 07:38 Dose: 10 mg Morphine Sulfate (Morphine) 2 mg IVP Q6 PRN PRN Reason: Pain, moderate (4-7) Ondansetron HCl (Zofran Inj) 4 mg IVP Q6 PRN PRN Reason: Nausea/Vomiting Pantoprazole Sodium (Protonix Ec Tab) 40 mg PO DAILY [facility] Last Admin: 10/21/17 08:19 Dose: 40 mg - Labs Labs: 10/21/17 04:50 10/21/17 04:50 - GI/Abdominal Exam Additional comments: soft, NT, ND, BS+, no rebound, no guarding, incision clean, no erythema, drainage of sucus from the site of the prior drain with ostomy appliance in place - Rectal Exam Rectal Exam: Deferred Assessment and Plan - Assessment and Plan (Free Text) Plan: - Keep NPO - IV flyuids - Antibiotics - Patient needs to be transferred to [facility] to the care of her pancreatic surgeon - No general surgery intervention at present time - General surgery will sign off - please re-consult as needed
--- NOTE | 2017-10-21 10:33 | CARD ---
APPROVED REPORT EKG Measurement Heart [id number] <Conclusion> Sinus tachycardia ST & T wave abnormality, consider lateral ischemia Abnormal ECG
[2017-10-21] MEDS: Lactated Ringer's 1,000 ML IV SCH (20:29)
--- NOTE | 2017-10-21 20:37 | CP.PCM.DIS ---
Provider - Provider Date of Admission: 10/20/17 13:45 Attending physician: Christoph Mosher MD Primary care physician: Ilya Hatch Consults: surgery consult Time Spent in preparation of Discharge (in minutes): 20 Hospital Course - Lab Results Lab Results: Micro Results 10/20/17 10:25 Blood-Venous Blood Culture - Preliminary Gram Negative Eyad 10/20/17 10:25 Blood-Venous Gram Stain - Final 10/20/17 18:00 Abdomen Gram Stain - Final 10/20/17 18:00 Abdomen Wound Culture - Preliminary Gram Negative Eyad 10/20/17 11:00 Urine,Clean Catch Urine Culture - Final No Growth (<1,000 CFU/ML) 10/20/17 09:50 Blood-Venous Blood Culture - Preliminary NO GROWTH AFTER 24 HOURS Most Recent Lab Values WBC 9.9 K/uL (4.8-10.8) D 10/21/17 04:50 RBC 3.07 Mil/uL (3.80-5.20) L 10/21/17 04:50 Hgb 9.1 g/dL (12.0-16.0) L D 10/21/17 04:50 Hct 26.6 % (34.0-47.0) L 10/21/17 04:50 MCV 86.6 fl (81.0-99.0) 10/21/17 04:50 MCH 29.6 pg (27.0-31.0) 10/21/17 04:50 MCHC 34.2 g/dL (33.0-37.0) 10/21/17 04:50 RDW 12.9 % (11.5-14.5) 10/21/17 04:50 Plt Count 205 K/uL (130-400) 10/21/17 04:50 MPV 8.9 fl (7.2-11.7) 10/21/17 04:50 Neut % (Auto) 91.5 % (50.0-75.0) H 10/21/17 04:50 Lymph % (Auto) 4.0 % (20.0-40.0) L 10/21/17 04:50 Wirt % (Auto) 4.1 % (0.0-10.0) 10/21/17 04:50 Eos % (Auto) 0.2 % (0.0-4.0) 10/21/17 04:50 Baso % (Auto) 0.2 % (0.0-2.0) 10/21/17 04:50 Neut # (Auto) 9.1 K/uL (1.8-7.0) H 10/21/17 04:50 Lymph # (Auto) 0.4 K/uL (1.0-4.3) L 10/21/17 04:50 Wirt # (Auto) 0.4 K/uL (0.0-0.8) 10/21/17 04:50 Eos # (Auto) 0.0 K/uL (0.0-0.7) 10/21/17 04:50 Baso # (Auto) 0.0 K/uL (0.0-0.2) 10/21/17 04:50 Neutrophils % (Manual) 94 % (42-75) H 10/21/17 04:50 Band Neutrophils % 4 % (0-2) H 10/20/17 10:25 Lymphocytes % (Manual) 4 % (20-50) L 10/21/17 04:50 Monocytes % (Manual) 2 % (0-10) 10/21/17 04:50 Platelet Estimate Normal (NORMAL) 10/21/17 04:50 Plt Clumps, EDTA Present 10/20/17 10:25 RBC Morphology Normal (NORMAL) 10/21/17 04:50 Polychromasia Slight 10/20/17 10:25 Hypochromasia (manual) Slight 10/20/17 10:25 Target Cells Slight 10/20/17 10:25 pO2 28 mm/Hg (30-55) L 10/20/17 10:02 VBG pH 7.51 (7.32-7.43) H 10/20/17 10:02 VBG pCO2 32 mmHg (40-60) L 10/20/17 10:02 VBG HCO3 26.3 mmol/L 10/20/17 10:02 VBG Total CO2 26.5 mmol/L (22-28) 10/20/17 10:02 VBG O2 Sat (Calc) 67.4 % (40-65) H 10/20/17 10:02 VBG Base Excess 3.0 mmol/L (0.0-2.0) H 10/20/17 10:02 VBG Potassium 3.4 mmol/L (3.6-5.2) L 10/20/17 10:02 Sodium 129.0 mmol/L (132-148) L 10/20/17 10:02 Chloride 97.0 mmol/L (98-107) L 10/20/17 10:02 Glucose 140 mg/dL (65-105) H 10/20/17 10:02 Lactate 1.5 mmol/L (0.7-2.1) 10/20/17 10:02 FiO2 21.0 % 10/20/17 10:02 Sodium 136 mmol/l (132-148) 10/21/17 04:50 Potassium 3.0 MMOL/L (3.6-5.0) L 10/21/17 04:50 Chloride 105 mmol/L (98-107) 10/21/17 04:50 Carbon Dioxide 21 mmol/L (22-30) L 10/21/17 04:50 Anion Gap 13 (10-20) 10/21/17 04:50 BUN 10 mg/dl (7-17) 10/21/17 04:50 Creatinine 0.4 mg/dl (0.7-1.2) L 10/21/17 04:50 Est GFR ( Amer) > 60 10/21/17 04:50 Est GFR (Non-Af Amer) > 60 10/21/17 04:50 Random Glucose 70 mg/dL (65-105) 10/21/17 04:50 Calcium 6.8 mg/dL (8.4-10.2) L 10/21/17 04:50 Total Bilirubin 1.4 mg/dl (0.2-1.3) H 10/21/17 04:50 AST 73 U/L (14-36) H 10/21/17 04:50 ALT 68 U/L (9-52) H 10/21/17 04:50 Alkaline Phosphatase 144 U/L (38-126) H 10/21/17 04:50 Total Protein 4.8 G/DL (6.3-8.2) L 10/21/17 04:50 Albumin 2.1 g/dL (3.5-5.0) L D 10/21/17 04:50 Globulin 2.7 gm/dL (2.2-3.9) 10/21/17 04:50 Albumin/Globulin Ratio 0.8 (1.0-2.1) L 10/21/17 04:50 Lipase 155 U/L (23-300) 10/20/17 12:40 TSH 3rd Generation 1.44 mIU/ML (0.46-4.68) 10/21/17 04:50 Venous Blood Potassium 3.4 mmol/L (3.6-5.2) L 10/20/17 10:02 Urine Color Yellow (YELLOW) 10/20/17 16:09 Urine Clarity Slighty-cloudy (Clear) 10/20/17 16:09 Urine pH 6.0 (5.0-8.0) 10/20/17 16:09 Ur Specific [place] 1.017 (1.003-1.030) 10/20/17 16:09 Urine Protein Negative mg/dL (NEGATIVE) 10/20/17 16:09 Urine Glucose (UA) Neg mg/dL (Normal) 10/20/17 16:09 Urine Ketones Trace mg/dL (NEGATIVE) 10/20/17 16:09 Urine Blood Negative (NEGATIVE) 10/20/17 16:09 Urine Nitrate Negative (NEGATIVE) 10/20/17 16:09 Urine Bilirubin Negative (NEGATIVE) 10/20/17 16:09 Urine Urobilinogen 4.0 mg/dL (0.2-1.0) H 10/20/17 16:09 Ur Leukocyte Esterase Neg Nila/uL (Negative) 10/20/17 16:09 Urine RBC (Auto) 6 /hpf (0-3) H 10/20/17 16:09 Urine Microscopic WBC 3 /hpf (0-5) 10/20/17 16:09 Urine Bacteria Rare (<OCC) 10/20/17 16:09 - Hospital Course Hospital Course: 67 yo female with history of Hypothyroidism, GERD and Pancreatic Cyst came in because of fever, chills, nausea and vomiting since the night before Patient had Whipple's procedure at [facility] in October 07 because of Pancreatic Cyst which was getting bigger. Cyst turned out to be benign. Post op days were uneventful and she was discharged in stable condition with a surgical drain on October 14. 2 days after discharge, patient started to have nausea and vomiting associated with low grade fever. She was seen in [facility] ER on March 22 and was found to be dehydrated. Patient's surgeon, Dr Veliz was called and did not advise admission but recommended just to hydrate patient. She was seen the next day by the surgeon and the drain was removed. She was started on PO Cephalexin 500mg BID. Last night nausea and vomiting recurred accompanied with fever and chills. The site where patient had feeding tube has continuos bile output Patient found to be febrile Tmax [address] abdomen showed post operative changes She was admitted in telemetry for possible infected surgical wound and fistula , started on IV vanco and zosyn, cultures sent and surgery consulted As per surgery patient will need to be transferred to [facility] where her surgeon is. Called her surgeon and discussed with his salon shampoo assistant . Patient has been accepted and will be transferred under her surgeons care as soon as bed is available will keep NPO for now Start D5W with 40 MEQ of KCl Continue IV vanco and zosyn for now. Wound cultures and blood cx positive for gram negative rods 1.Bacteremia Blood cx positive for gram negative eyad Continue IV antibiotics Keep NPO Transfer to [facility] 2. 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 Hypothyroid continue Levothyroxine 4. GERD on Pepcid 40mg PO daily 5. Hypokalemia most likley due to GI loss replace in IVF 6. Transaminitis most likely related with post op Follow up with her surgeon keep NPO 7. Anemia Hgb 9 most likely secondary to blood loss during recent surgery 8. DVT prophylaxis venodyne boots while in bed Discharge Exam - Head Exam Head Exam: ATRAUMATIC, NORMAL INSPECTION, NORMOCEPHALIC - Eye Exam Eye Exam: EOMI, Normal appearance, PERRL Pupil Exam: NORMAL ACCOMODATION - ENT Exam ENT Exam: Mucous Membranes Moist, Normal Exam - Neck Exam Neck exam: Full Rom, Normal Inspection - Respiratory Exam Respiratory Exam: Clear to PA & Lateral, NORMAL BREATHING PATTERN. absent: Rales, Rhonchi, Wheezes - Cardiovascular Exam Cardiovascular Exam: REGULAR RHYTHM, RRR, +S1, +S2. absent: JVD - GI/Abdominal Exam GI & Abdominal Exam: Normal Bowel Sounds, Soft. absent: Distended, Guarding, Tenderness Additional comments: mid abdomen ostomy opening with biliary output to colostomy bag - Rectal Exam Rectal Exam: Deferred - Extremities Exam Extremities exam: normal capillary refill, normal inspection, pedal pulses present - Back Exam Back exam: NORMAL INSPECTION - Neurological Exam Neurological exam: Alert, CN II-XII Intact, Oriented x3, Reflexes Normal - Psychiatric Exam Psychiatric exam: Normal Affect, Normal Mood - Skin Skin Exam: Dry, Pallor, Warm Discharge Plan - Discharge Medications Prescriptions: Piperacillin Sodium/Tazobactam [Zosyn 3.375 Gram Vial] 3.375 gm IV Q6 #30 vial Vancomycin/0.9 % Sod Chloride [Vanco 1 Gram/150 ml-0.9% NaCl] 1 gm IV Q12 #28 plast..bag - Follow Up Plan Condition: STABLE Disposition: Trans to Other Acute Care Hosp Patient education suggested?: Yes Additional Instructions: Follow up with her surgeon
[2017-10-21] MEDS ORDERED: Potassium Chl 40mEq & D5W 1,000 ML IV SCH (20:45)
[2017-10-21] MEDS: Potassium Chloride 20 mEq 100 ML IVPB SCH (23:30)
[2017-10-22] MEDS: Potassium Chloride 20 mEq 100 ML IVPB SCH (02:43)
[2017-10-22] MEDS: Piperacillin/Tazobact 3.375 GM in Sodium Chloride 0.9% 100 ML IVPB SCH ×2 (04:52→09:07)
[2017-10-22 07:52] LABS: HEMOGLOBIN 11.2 g/dL (12.0-16.0); MEAN CELL VOLUME 84.7 fl (81.0-99.0); MEAN CORPUSCULAR HGB CONC 34.2 g/dL (33.0-37.0); RBC 3.88 Mil/uL (3.80-5.20); RED CELL DISTRIBUTION WIDTH 13.4 % (11.5-14.5)
[2017-10-22 08:36] LABS: ALB/GLOB RATIO 0.9 (1.0-2.1); ALBUMIN 2.7 g/dL (3.5-5.0); ALT/SGPT 76 U/L (9-52); AST/SGOT 63 U/L (14-36); BLOOD UREA NITROGEN 8 mg/dl (7-17); CALCIUM 8.1 mg/dL (8.4-10.2); GFR AFRICAN-AMERICAN > 60; GFR NON-AFRICAN AMERICAN > 60
[2017-10-22] MEDS: PROTEASE PO SCH ×3 (09:07→16:37)
[2017-10-22] MEDS: Levothyroxine 50 MCG TAB PO SCH (09:07)
[2017-10-22] MEDS: LIPASE PO SCH ×3 (09:07→16:37)
[2017-10-22] MEDS: Pantoprazole 40 mg EC Tab PO SCH (09:07)
[2017-10-22] MEDS: Lactobacillus Acidophilus 500 MU Cap PO SCH ×2 (09:07→16:37)
[2017-10-22] MEDS: AMYLASE PO SCH ×3 (09:07→16:37)
--- NOTE | 2017-10-22 11:08 | CP.PCM.CON ---
History of Present Illness - History of Present Illness History of Present Illness: 67yo F with PMHx of Hypothyroid, GERD, Pancreatic Cyst s/p whipple on 10/07/[address] Veliz at [facility] here for evaluation of nausea/ vomiting and fevers. Patient also c/o previous abdominal drain site leaking yellow/brown fluid. She states that post-operatively she has been doing well with pain but has been having bouts of nausea/vomiting off and on. She was discharged home with abdominal drain on October 14 and then abdominal drain was removed on October 18 during her first post-op follow-up visit. Since the drain was removed, she has been having yellow/brown fluid leaking form the site. She denies any abdominal pain. She does report nausea/vomiting and decreased PO intake for the past 3 days. She started having fevers and chills at home and was prescribed a course of Oral Abx on Saturday, Keflex. She reports that fevers, chills and N/V has not improved so she came in for evaluation at [facility] ED. She reports that she has another follow-up appointment with Dr. Veliz on Thrus , October 24. Denies any Chest pain, no SOB. No urinary complaints. recent cultures + ESBL E Coli ID consult requested Merrem initiated Hepatobiliary Surgeon: Dr. Veliz at [facility] PMHx: Hypothyroid, GERD, Pancreatic cyst (s/p resection, bx-benign) PSHx: Whipple (October 07, 2017 at [facility]) Family Hx: non-contributory Social Hx: Denies tobacco, Denies ETOH, Denies illicit drugs. Lives with family Allergy: Sulfa Review of Systems - Constitutional Constitutional: As Per HPI - EENT Eyes: absent: As Per HPI, Blind Spots, Blurred Vision, Change in Vision, Decreased Night Vision, Diplopia, Discharge, Dry Eye, Exophthalmos, Floaters, Irritation, Itchy Eyes, Loss of Peripheral Vision, Pain, Photophobia, Requires Corrective Lenses, Sees Flashes, Spots in Vision, Tunnel Vision, Other Visual Disturbances, Loss of Vision, Other Ears: absent: As Per HPI, Decreased Hearing, Ear Discharge, Ear Pain, Tinnitus, Abnormal Hearing, Disequilibrium, Dizziness, Other Nose/Mouth/Throat: absent: As Per HPI, Epistaxis, Nasal Congestion, Nasal Discharge, Nasal Obstruction, Nasal Trauma, Nose Pain, Post Nasal Drip, Sinus Pain, Sinus Pressure, Bleeding Gums, Change in Voice, Dental Pain, Dry Mouth, Dysphagia, Halitosis, Hoarsness, Lip Swelling, Mouth Lesions, Mouth Pain, Odynophagia, Sore Throat, Throat Swelling, Tongue Swelling, Facial Pain, Neck Pain, Neck Mass, Other - Breasts Breasts: absent: As Per HPI, Change in Shape, Mass, Pain, Nipple Discharge, Nipple Inversion, Skin Changes, Swelling, Other - Cardiovascular Cardiovascular: absent: As Per HPI, Acrocyanosis, Chest Pain, Chest Pain at Rest , Chest Pain with Activity, Claudication, Diaphoresis, Dyspnea, Dyspnea on Exertion, Edema, Irregular Heart Rhythm, Pain Radiating to Arm/Neck/Jaw, Leg Edema, Leg Ulcers, Lightheadedness, Orthopnea, Palpitations, Paroxysmal Nocturnal Dyspnea, Pedal Edema, Radiating Pain, Rapid Heart Rate, Slow Heart Rate, Syncope, Other - Respiratory Respiratory: absent: As Per HPI, Cough, Dyspnea, Hemoptysis, Dyspnea on Exertion , Wheezing, Snoring, Stridor, Pain on Inspiration, Chest Congestion, Excessive Mucous Production, Change in Mucous Color, Pain with Coughing, Other - Gastrointestinal Gastrointestinal: As Per HPI - Genitourinary Genitourinary: absent: As Per HPI, Change in Urinary Stream, Difficulty Urinating, Dysuria, Flank Pain, Hematuria, Pyuria, Nocturia, Urinary Incontinence, Urinary Frequency, Urinary Hesitance, Urinary Urgency, Voiding Freq/Small Amts, Freq UTI, Hx Renal/Bladder Calculi, Hx /Renal Surgery, Bladder Distension, Other - Reproductive: Female Reproductive:Female: absent: As Per HPI, Amenorrhea, Amenorrhea/ Control, Currently Menstual, Cycle <21 Days, Cycle >35 Days, Cycle Variable, Menses 1-7 Days, Menses >/= 8 Days, Menses Variable, Cycle > 4 Weeks Between, No Menses for 6 Months, Heavy Menses, Light Menses, Normal Menses, Spotting Between Cycles , S/P Hysterectomy, Menopausal, Post Menopausal, Premenarche, Abnormal Vaginal Bleeding, Dysmenorrhea, Dyspareunia, Genital Lesions, Genital Pruritis, Pelvic Pain, Prolapse Symptoms, Sexual Dysfunction, Vaginal Discharge, Vaginal Dryness , Vaginal Odor, Vaginal Pruritis, Other - Menstruation Menstruation: absent: As Per HPI, Amenorrhea, Amenorrhea/ Control, Currently Menstual, Cycle <21 Days, Cycle >35 Days, Cycle Variable, Menses 1-7 Days, Menses >/= 8 Days, Menses Variable, Cycle > 4 Weeks Between, No Menses for 6 Months, Heavy Menses, Light Menses, Normal Menses, Spotting Between Cycles , S/P Hysterectomy, Menopausal, Post Menopausal, Premenarche, Abnormal Vaginal Bleeding, Dysmenorrhea, Other - Musculoskeletal Musculoskeletal: absent: As Per HPI, Abnormal Gait, Arthralgias, Atrophy, Back Pain, Deformity, Joint Swelling, Limited Range of Motion, Loss of Height, Muscle Cramps, Muscle Weakness, Myalgias, Neck Pain, Numbness, Radiating Pain into Limb, Stiffness, Tingling, Other - Integumentary Integumentary: absent: As Per HPI, Acne, Alopecia, Bleeding Lesions, Change in Hair, Change in Nails, Change in Pigmentation, Changing Lesions, Dry Skin, Erythema, Furuncle, Hirsutism, Lesions, New Lesions, Non-Healing Lesions, Photosensitivity, Pruritus, Rash, Skin Pain, Skin Ulcer, Sores, Striae, Swelling , Unusual Bruising, Wounds, Jaundice, Other - Neurological Neurological: absent: As Per HPI, Abnormal Gait, Abnormal Hearing, Abnormal Movements, Abnormal Speech, Behavioral Changes, Burning Sensations, Confusion, Convulsions, Disequilibrium, Dizziness, Numbness, Focal Weakness, Frequent Falls , Headaches, Lack of Coordination, Loss of Vision, Memory Loss, Paresthesias, Radicular Pain, Restless Legs, Sensory Deficit, Syncope, Tingling, Tremor, Vertigo, Weakness, Other Visual Disturbances, Other - Psychiatric Psychiatric: absent: As Per HPI, Abnormal Sleep Pattern, Anhedonia, Anxiety, Auditory Hallucinations, Behavioral Changes, Change in Appetite, Change in Libido, Confusion, Depression, Difficulty Concentrating, Hallucinations, Homicidal Ideation, Hopelessness, Irritability, Memory Loss, Mood Swings, Panic Attacks, Paranoia, Suicidal Ideation, Visual Hallucinations, Tactile Hallucinations, Other - Endocrine Endocrine: absent: As Per HPI, Change in Body Appearance, Change in Libido, Cold Intolorance, Deepening of Voice, Excessive Sweating, Fatigue, Flushing, Heat Intolorance, Increase in Ring/Shoe/Hat Size, Palpitations, Polydipsia, Polyphagia, Polyuria, Other - Hematologic/Lymphatic Hematologic: absent: As Per HPI, Easy Bleeding, Easy Bruising, Lymphadenopathy, Other Past Patient History - Tetanus Immunizations Tetanus Immunization: Unknown - Past Medical History & Family History Past Medical History?: Yes - Past Social History Smoking Status: Never Smoked Alcohol: None Drugs: Denies Home Situation {Lives}: With Family - CARDIAC Hx Cardiac Disorders: Yes - PULMONARY Hx Respiratory Disorders: No - NEUROLOGICAL Hx Neurological Disorder: No - HEENT Hx HEENT Problems: No - RENAL Hx Chronic Kidney Disease: No - ENDOCRINE/METABOLIC Hx Endocrine Disorders: Yes - HEMATOLOGICAL/ONCOLOGICAL Hx Blood Disorders: No - INTEGUMENTARY Hx Dermatological Problems: No - MUSCULOSKELETAL/RHEUMATOLOGICAL Hx Musculoskeletal Disorders: No Hx Falls: No - GASTROINTESTINAL Hx Gastroesophageal Reflux: Yes Other/Comment: pancreatic cyst - GENITOURINARY/GYNECOLOGICAL Hx Genitourinary Disorders: No - PSYCHIATRIC Hx Psychophysiologic Disorder: No Hx Substance Use: No - SURGICAL HISTORY Hx Surgeries: Yes Other/Comment: whipple procedure 10/07/17 - ANESTHESIA Hx Anesthesia: Yes Hx Anesthesia Reactions: No Meds Home Medications: Home Medication List Medication Instructions Recorded Confirmed Type Acetaminophen [Tylenol 325mg tab] 650 mg PO Q6 PRN tab 10/21/17 Rx Lactobacillus Acidophilus [Bacid 1 cap PO BID cap 10/21/17 Rx Acidophilus] Piperacillin Sodium/Tazobactam 3.375 gm IV Q6 #30 vial 10/21/17 Rx [Zosyn 3.375 Gram Vial] Vancomycin/0.9 % Sod Chloride 1 gm IV Q12 #28 plast..bag 10/21/17 Rx [Vanco 1 Gram/150 ml-0.9% NaCl] Allergies/Adverse Reactions: Allergies Allergy/AdvReac Type Severity Reaction Status Date / Time Sulfa (Sulfonamide Allergy RASH Verified 10/20/17 09:14 Antibiotics) - Medications Medications: Current Medications Acetaminophen (Tylenol 325mg Tab) 650 mg PO Q6 PRN PRN Reason: Fever >100.4 F Last Admin: 10/20/17 20:52 Dose: 650 mg Docusate Sodium (Colace) 100 mg PO BID CLAUDIA Last Admin: 10/22/17 09:07 Dose: Not Given Ergocalciferol (Drisdol 50,000 Intl Units Cap) 1 cap PO QWK [facility] Home Med (Lipase/Protease/Amylase [Creon Dr 24,000 Units Capsule]) 1 cap PO TID [facility] Last Admin: 10/22/17 09:07 Dose: Not Given Vancomycin HCl 1 gm/ Sodium (Chloride) 250 mls @ 166.667 mls/hr IVPB Q12 [facility] PRN Reason: Protocol Last Admin: 10/22/17 09:11 Dose: 166.667 mls/hr Piperacillin Sod/Tazobactam (Sod 3.375 gm/ Sodium Chloride) 100 mls @ 100 mls/ hr IVPB Q6 [facility] PRN Reason: Protocol Last Admin: 10/22/17 09:07 Dose: 100 mls/hr Potassium Chloride/Dextrose (Potassium Chl 40 Meq In D5w) 1,000 mls @ 100 mls/ hr IV .Q10H [facility] Stop: 10/22/17 20:42 Lactobacillus Acidophilus (Bacid Acidophilus) 1 cap PO BID [facility] Last Admin: 10/22/17 09:07 Dose: Not Given Levothyroxine Sodium (Synthroid) 50 mcg PO DAILY@0630 [facility] Last Admin: 10/22/17 09:07 Dose: Not Given Metoclopramide HCl (Reglan) 5 mg IVP Q8 [facility] Last Admin: 10/22/17 09:10 Dose: 5 mg Morphine Sulfate (Morphine) 2 mg IVP Q6 PRN PRN Reason: Pain, moderate (4-7) Ondansetron HCl (Zofran Inj) 4 mg IVP Q6 PRN PRN Reason: Nausea/Vomiting Pantoprazole Sodium (Protonix Ec Tab) 40 mg PO DAILY [facility] Last Admin: 10/22/17 09:07 Dose: Not Given Physical Exam - Constitutional Appears: Non-toxic, Chronically Ill - Head Exam Head Exam: NORMOCEPHALIC - Eye Exam Eye Exam: absent: Scleral icterus - ENT Exam ENT Exam: Mucous Membranes Dry, Normal External Ear Exam - Neck Exam Neck exam: Negative for: Lymphadenopathy - Respiratory Exam Respiratory Exam: Decreased Breath Sounds - Cardiovascular Exam Cardiovascular Exam: REGULAR RHYTHM, +S1, +S2 - GI/Abdominal Exam GI & Abdominal Exam: Diminished Bowel Sounds, Distended, Guarding, Tenderness. absent: Rebound, Rigid - Rectal Exam Rectal Exam: Deferred - Exam Exam: NORMAL INSPECTION - Extremities Exam Extremities exam: Negative for: calf tenderness, pedal edema, tenderness - Back Exam Back exam: absent: CVA tenderness (L), CVA tenderness (R) - Neurological Exam Neurological exam: Alert, CN II-XII Intact, Oriented x3, Reflexes Normal - Psychiatric Exam Psychiatric exam: Normal Mood - Skin Skin Exam: Dry Results - Vital Signs Recent Vital Signs: Last Vital Signs Temp 98.5 F 10/22/17 08:07 Pulse 92 H 10/22/17 08:07 Resp 20 10/22/17 08:07 BP 118/66 10/22/17 08:07 Pulse Ox 96 10/22/17 08:07 - Labs Result Diagrams: 10/22/17 07:00 10/22/17 07:00 Labs: Laboratory Results - last 24 hr 10/22/17 10/22/17 07:00 07:00 WBC 16.0 H D RBC 3.88 Hgb 11.2 L D Hct 32.8 L MCV 84.7 MCH 29.0 MCHC 34.2 RDW 13.4 Plt Count 306 D Sodium 138 Potassium 3.1 L Chloride 102 Carbon Dioxide 19 L Anion Gap 20 BUN 8 Creatinine 0.5 L Est GFR ( Amer) > 60 Est GFR (Non-Af Amer) > 60 Random Glucose 60 L Calcium 8.1 L Total Bilirubin 1.0 AST 63 H ALT 76 H Alkaline Phosphatase 191 H D Total Protein 5.6 L Albumin 2.7 L D Globulin 2.9 Albumin/Globulin Ratio 0.9 L Assessment & Plan (1) Intra-abdominal infection Status: Acute (2) Sepsis Status: Acute - Assessment and Plan (Free Text) Assessment: add merrem for transfer [facility]
--- NOTE | 2017-10-22 11:21 | PQF GENQUE ---
Dr. Garcia, Sepsis ruled in or Sepsis ruled out? Patient has sepsis Please document suspected or confirmed causative organism if known Please document suspected or confirmed localized infection Please clarify if sepsis is related to a device Please clarify if sepsis was present on admission Sepsis was ruled out Please provide corresponding diagnosis for patient's clinical picture and associated treatment Patient had sepsis which is now resolved Other condition (please specify) Clinically unable to determine Unknown Temp.:97->102.8->98.7----102 Pulse;138->133->122->119 10/20 @21:00: B/P:92/47->91/51->99/57 10/20/17@09:50: blood culture: prelim no growth after 48 hrs. 8@10:25: blood culture x one: preliminary: Gram neg heydi ER ; Clinical Impression: Sepsis, Intra-abdominal infection H and P; of Hypothyroidism, GERD and Pancreatic Cyst (Post Whipple's Procedure) came in because of fever, chills, nausea and vomiting since last night. 1. Infected Surgical wound Blood culture Wound culture Vancomycin 1gm IV q 12hrs Zosyn 3.375gm IV q 6hrs Bacid 1 tab PO BID surgical consult with Dr Roland 2. Hypothyroid continue Levothyroxine 3. GERD Pepcid 40mg PO daily 10/20 Surgical consult: with Whipple done at [facility]. Post-operative course complicated by fever and biliary leak. 10/21 : D/C Summary: Bacteremia Blood cx positive for gram negative heydi Continue IV antibiotics Keep NPO Transfer to [facility] IV: Vamcomycin and Piperacillin This form is a permanent part of the medical record Clarification of your documentation is requested to better reflect the severity of illness and intensity of treatment of your patient. Indicators present [] Specify: [] [] Specify: [] [] Specify: [] [] Specify: [] Location in the medical record that reflects the above clinical findings: [] Treatment Provided: [] PHYSICIAN'S RESPONSE patient has sepsis secondary to ESBl E. coli with bacteremia and surgical wound infection ( POA) Based on your medical judgment of the clinical indicators outlined above please clarify the following: [] Practitioner response [] If unable to determine, please check the box, sign and date. Present On Admission (POA) Indicator: [] Present at the time of admission [] Not present at the time of admission [] Clinically Undetermined In responding to this query, please exercise your independent professional judgment. The fact that a question is asked does not imply that any particular answer is desired or expected. Thank you for your clarification on this documentation. If you have any questions please call. * Thank you, Janell Hendrickson RN ext. #[phone] MTDD
[2017-10-22] MEDS ORDERED: Meropenem 1 GM in Sodium Chloride 0.9% 100 ML IVPB ONE (11:30)
[2017-10-22] MEDS ORDERED: Potassium Chloride 20 mEq/15 ml LIQ UD PO ONE (11:31)
[2017-10-22] MEDS: Potassium Chl 40 mEq in D5-1/2 1,000 ML IV SCH ×2 (12:18→22:00)
--- NOTE | 2017-10-22 12:30 | CP.PCM.PN ---
Subjective - Date & Time of Evaluation Date of Evaluation: 10/22/17 Time of Evaluation: 11:00 - Subjective Subjective: Patient seen and examined bedside. Hemodynamically stable, afebrile. Complains of lateral abdominal wall feeling swollen Denies any pain or discomfort NPO on IVF colostomy bag to ostomy with biliary drainage , less in amount Objective - Vital Signs/Intake and Output Vital Signs (last 24 hours): Temp Pulse Resp BP Pulse Ox 98.5 F 92 H 20 118/66 96 10/22/17 08:07 10/22/17 08:07 10/22/17 08:07 10/22/17 08:07 10/22/17 08:07 Intake and Output: 10/22/17 10/22/17 06:59 18:59 Intake Total 1800 Output Total 375 Balance 1425 - Medications Medications: Current Medications Acetaminophen (Tylenol 325mg Tab) 650 mg PO Q6 PRN PRN Reason: Fever >100.4 F Last Admin: 10/20/17 20:52 Dose: 650 mg Docusate Sodium (Colace) 100 mg PO BID [facility] Last Admin: 10/22/17 09:07 Dose: Not Given Ergocalciferol (Drisdol 50,000 Intl Units Cap) 1 cap PO QWK [facility] Home Med (Lipase/Protease/Amylase [Creon Dr 24,000 Units Capsule]) 1 cap PO TID [facility] Last Admin: 10/22/17 09:07 Dose: Not Given Vancomycin HCl 1 gm/ Sodium (Chloride) 250 mls @ 166.667 mls/hr IVPB Q12 [facility] PRN Reason: Protocol Last Admin: 10/22/17 09:11 Dose: 166.667 mls/hr Piperacillin Sod/Tazobactam (Sod 3.375 gm/ Sodium Chloride) 100 mls @ 100 mls/ hr IVPB Q6 [facility] PRN Reason: Protocol Last Admin: 10/22/17 09:07 Dose: 100 mls/hr Potassium Chloride/Dextrose/Sod Cl (Potassium Chl 40 Meq In D5-1/2ns) 1,000 mls @ 100 mls/hr IV .Q10H [facility] Stop: 10/23/17 11:15 Last Admin: 10/22/17 12:18 Dose: 100 mls/hr Meropenem 1 gm/ Sodium (Chloride) 100 mls @ 100 mls/hr IVPB ONCE ONE PRN Reason: Protocol Stop: 10/22/17 12:29 Last Admin: 10/22/17 12:18 Dose: 100 mls/hr Lactobacillus Acidophilus (Bacid Acidophilus) 1 cap PO BID [facility] Last Admin: 10/22/17 09:07 Dose: Not Given Levothyroxine Sodium (Synthroid) 50 mcg PO DAILY@0630 [facility] Last Admin: 10/22/17 09:07 Dose: Not Given Metoclopramide HCl (Reglan) 5 mg IVP Q8 [facility] Last Admin: 10/22/17 09:10 Dose: 5 mg Morphine Sulfate (Morphine) 2 mg IVP Q6 PRN PRN Reason: Pain, moderate (4-7) Ondansetron HCl (Zofran Inj) 4 mg IVP Q6 PRN PRN Reason: Nausea/Vomiting Pantoprazole Sodium (Protonix Ec Tab) 40 mg PO DAILY [facility] Last Admin: 10/22/17 09:07 Dose: Not Given - Labs Labs: 10/22/17 07:00 10/22/17 07:00 - Constitutional Appears: Non-toxic, No Acute Distress - Head Exam Head Exam: ATRAUMATIC, NORMAL INSPECTION, NORMOCEPHALIC - Eye Exam Eye Exam: EOMI, Normal appearance, PERRL Pupil Exam: NORMAL ACCOMODATION - ENT Exam ENT Exam: Mucous Membranes Moist, Normal Exam - Neck Exam Neck Exam: Full ROM, Normal Inspection - Respiratory Exam Respiratory Exam: Clear to Ausculation Bilateral, NORMAL BREATHING PATTERN. absent: Rales, Rhonchi, Wheezes, Respiratory Distress - Cardiovascular Exam Cardiovascular Exam: REGULAR RHYTHM, RRR, +S1, +S2. absent: JVD - GI/Abdominal Exam GI & Abdominal Exam: Soft. absent: Distended, Guarding, Tenderness, Rebound Additional comments: mid abdomen ostomy with colostomy bag in place and biliary drainage - Rectal Exam Rectal Exam: Deferred - Extremities Exam Extremities Exam: Full ROM, Normal Capillary Refill, Normal Inspection. absent : Calf Tenderness, Pedal Edema - Back Exam Back Exam: NORMAL INSPECTION - Neurological Exam Neurological Exam: Alert, Awake, CN II-XII Intact, Oriented x3 - Psychiatric Exam Psychiatric exam: Normal Affect, Normal Mood - Skin Skin Exam: Dry, Intact, Normal Color, Warm Assessment and Plan - Assessment and Plan (Free Text) Assessment: 67 yo female with history of Hypothyroidism, GERD and Pancreatic Cyst came in because of fever, chills, nausea and vomiting since the night before Patient had Whipple's procedure at [facility] in October 07 because of Pancreatic Cyst which was getting bigger. Cyst turned out to be benign. Post op days were uneventful and she was discharged in stable condition with a surgical drain on October 14. 2 days after discharge, patient started to have nausea and vomiting associated with low grade fever. She was seen in [facility] ER on October 17 and was found to be dehydrated. Patient's surgeon, Dr Veliz was called and did not advise admission but recommended just to hydrate patient. She was seen the next day by the surgeon and the drain was removed. She was started on PO Cephalexin 500mg BID. Last night nausea and vomiting recurred accompanied with fever and chills. The site where patient had feeding tube has continuos bile output Patient found to be febrile Tmax 102 , tachycardic , WBC [address] abdomen showed post operative changes She was admitted in telemetry for possible infected surgical wound and fistula , started on IV vanco and zosyn, cultures sent and surgery consulted As per surgery patient need to be transferred to [facility] where her surgeon is. Called her surgeon and discussed with his assistant county attorney . Patient has been accepted and will be transferred under her surgeons care as soon as bed is available will keep NPO for now Started D5 1/2 NS with 40 MEQ of KCl wound cultures growing ESBl and blood cx positive for gram negative heydi called ID on consult and patient started on Meropenem.Cwill d/c Zosyn and Continue vancomycin IV Placed on contact isolation . At present output for ostomy has decreased. Start ice chips.Waiting transfer 1.Bacteremia Blood cx positive for gram negative heydi ID consulted Started on Meropenem Iv since wound cx growing ESBL and WBC count trending up to 16 K Keep NPO Transfer to [facility] 2. 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 Hypothyroid continue Levothyroxine 4. GERD on Pepcid 40mg PO daily 5. Hypokalemia most likely due to GI loss replace in IVF and PO 6. Transaminitis most likely related with post op changes Follow up with her surgeon keep NPO 7. Anemia Hgb 9 most likely secondary to blood loss during recent surgery 8. DVT prophylaxis venodyne boots while in bed
[2017-10-22] MEDS: Meropenem 1 GM in Sodium Chloride 0.9% 100 ML IVPB SCH ×2 (13:50→16:42)
[2017-10-23 00:24] VITALS: O2SAT 96
[2017-10-23] MEDS: Meropenem 1 GM in Sodium Chloride 0.9% 100 ML IVPB SCH ×3 (00:46→16:58)
[2017-10-23] MEDS: Potassium Chl 40 mEq in D5-1/2 1,000 ML IV SCH ×2 (06:04→09:02)
[2017-10-23 08:10] VITALS: PULSE 86; RESP 20
[2017-10-23] MEDS: Lactobacillus Acidophilus 500 MU Cap PO SCH ×2 (08:59→16:53)
[2017-10-23] MEDS: AMYLASE PO SCH ×3 (08:59→16:53)
[2017-10-23] MEDS: LIPASE PO SCH ×3 (08:59→16:53)
[2017-10-23] MEDS: PROTEASE PO SCH ×3 (08:59→16:53)
[2017-10-23] MEDS: Pantoprazole 40 mg EC Tab PO SCH (09:00)
[2017-10-23] MEDS: Levothyroxine 50 MCG TAB PO SCH (09:01)
--- NOTE | 2017-10-23 10:30 | PQF GENQUE ---
Dr. Romero, Etiology of ESBL E-Coli Sepsis? i.e. due to feeding tube device versus Sepsis due to an infection following a procedure/surgery or Multifactorial etiology etc. OR: Unable to determine H and P: The site of the drain tube also continued to leak brownish fluid. Physical Exam :site of removed surgical drain tube surrounded with erythema with crusty brown drainage in the center, no tenderness Assessment: 67 yo female with history of Hypothyroidism, GERD and Pancreatic Cyst (Post Whipple's Procedure) came in because of fever, chills, nausea and vomiting since last night. 1. Infected Surgical wound Blood culture Wound culture Vancomycin 1gm IV q 12hrs Zosyn 3.375gm IV q 6hrs Bacid 1 tab PO BID surgical consult 10/22 progress note: The site where patient had feeding tube has continuous bile output Patient found to be febrile Tmax 102 , tachycardic , WBC [address] abdomen showed post operative changes biliary output from site of feeding tube has decreased last 12hours since patinet started NPO Keep NPO and continue IVF This form is a permanent part of the medical record Clarification of your documentation is requested to better reflect the severity of illness and intensity of treatment of your patient. Indicators present [] Specify: [] [] Specify: [] [] Specify: [] [] Specify: [] Location in the medical record that reflects the above clinical findings: [] Treatment Provided: [] PHYSICIAN'S RESPONSE unknown Based on your medical judgment of the clinical indicators outlined above please clarify the following: [] Practitioner response [] If unable to determine, please check the box, sign and date. Present On Admission (POA) Indicator: [] Present at the time of admission [] Not present at the time of admission [] Clinically Undetermined In responding to this query, please exercise your independent professional judgment. The fact that a question is asked does not imply that any particular answer is desired or expected. Thank you for your clarification on this documentation. If you have any questions please call. * Thank you, * Janell Hendrickson RN ext. #[phone] MTDD
--- NOTE | 2017-10-23 13:59 | CP.PCM.PN ---
Subjective - Date & Time of Evaluation Date of Evaluation: 10/23/17 Time of Evaluation: 13:58 - Subjective Subjective: doing well this morning HD stable no complaints this AM NAD awaiting transfer to [facility] pending bed availability Objective - Vital Signs/Intake and Output Vital Signs (last 24 hours): Temp Pulse Resp BP Pulse Ox 98.5 F 86 20 131/80 96 10/23/17 08:09 10/23/17 08:09 10/23/17 08:09 10/23/17 08:09 10/23/17 08:09 Intake and Output: 10/23/17 10/23/17 06:59 18:59 Intake Total 1200 Output Total 50 Balance 1150 - Medications Medications: Current Medications Acetaminophen (Tylenol 325mg Tab) 650 mg PO Q6 PRN PRN Reason: Fever >100.4 F Last Admin: 10/20/17 20:52 Dose: 650 mg Docusate Sodium (Colace) 100 mg PO BID [facility] Last Admin: 10/23/17 08:59 Dose: Not Given Ergocalciferol (Drisdol 50,000 Intl Units Cap) 1 cap PO QWK [facility] Home Med (Lipase/Protease/Amylase [Creon Dr 24,000 Units Capsule]) 1 cap PO TID [facility] Last Admin: 10/23/17 12:10 Dose: Not Given Vancomycin HCl 1 gm/ Sodium (Chloride) 250 mls @ 166.667 mls/hr IVPB Q12 [facility] PRN Reason: Protocol Last Admin: 10/23/17 09:02 Dose: 166.667 mls/hr Meropenem 1 gm/ Sodium (Chloride) 100 mls @ 100 mls/hr IVPB Q8 [facility] PRN Reason: Protocol Last Admin: 10/23/17 08:59 Dose: 100 mls/hr Lactobacillus Acidophilus (Bacid Acidophilus) 1 cap PO BID [facility] Last Admin: 10/23/17 08:59 Dose: Not Given Levothyroxine Sodium (Synthroid) 50 mcg PO DAILY@0630 [facility] Last Admin: 10/23/17 09:01 Dose: Not Given Metoclopramide HCl (Reglan) 5 mg IVP Q8 [facility] Last Admin: 10/23/17 09:01 Dose: 5 mg Morphine Sulfate (Morphine) 2 mg IVP Q6 PRN PRN Reason: Pain, moderate (4-7) Ondansetron HCl (Zofran Inj) 4 mg IVP Q6 PRN PRN Reason: Nausea/Vomiting Pantoprazole Sodium (Protonix Ec Tab) 40 mg PO DAILY [facility] Last Admin: 10/23/17 09:00 Dose: Not Given - Labs Labs: 10/22/17 07:00 10/22/17 07:00 - Constitutional Appears: Non-toxic, No Acute Distress - Head Exam Head Exam: ATRAUMATIC, NORMOCEPHALIC - Eye Exam Eye Exam: EOMI, Normal appearance, PERRL Pupil Exam: NORMAL ACCOMODATION - ENT Exam ENT Exam: Mucous Membranes Moist, Normal Oropharynx - Respiratory Exam Respiratory Exam: Clear to Ausculation Bilateral, NORMAL BREATHING PATTERN - Cardiovascular Exam Cardiovascular Exam: RRR, +S1, +S2 - GI/Abdominal Exam GI & Abdominal Exam: Soft, Normal Bowel Sounds. absent: Tenderness, Organomegaly Additional comments: ostomy in place - Extremities Exam Extremities Exam: Full ROM, Normal Capillary Refill - Back Exam Back Exam: absent: CVA tenderness (L), CVA tenderness (R) - Neurological Exam Neurological Exam: Alert, Awake - Psychiatric Exam Psychiatric exam: Normal Affect, Normal Mood - Skin Skin Exam: Dry, Warm Assessment and Plan - Assessment and Plan (Free Text) Plan: 67 yo female with history of Hypothyroidism, GERD and Pancreatic Cyst came in because of fever, chills, nausea and vomiting since the night before Patient had Whipple's procedure at [facility] in October 07 because of Pancreatic Cyst which was getting bigger. Cyst turned out to be benign. Post op days were uneventful and she was discharged in stable condition with a surgical drain on October 14. 2 days after discharge, patient started to have nausea and vomiting associated with low grade fever. She was seen in [facility] ER on October 17 and was found to be dehydrated. Patient's surgeon, Dr Veliz was called and did not advise admission but recommended just to hydrate patient. She was seen the next day by the surgeon and the drain was removed. She was started on PO Cephalexin 500mg BID. Last night nausea and vomiting recurred accompanied with fever and chills. The site where patient had feeding tube has continuos bile output Patient found to be febrile Tmax 102 , tachycardic , WBC [address] abdomen showed post operative changes She was admitted in telemetry for possible infected surgical wound and fistula , started on IV vanco and zosyn, cultures sent and surgery consulted As per surgery patient need to be transferred to [facility] where her surgeon is. Called her surgeon and discussed with his land surveyor assistant . Patient has been accepted and will be transferred under her surgeons care as soon as bed is available will keep NPO for now Started D5 1/2 NS with 40 MEQ of KCl wound cultures growing ESBl and blood cx positive for gram negative heydi called ID on consult and patient started on Meropenem.Cwill d/c Zosyn and Continue vancomycin IV Placed on contact isolation . At present output for ostomy has decreased. Start ice chips.Waiting transfer 1.Bacteremia Blood cx positive for ECOLI ESBL/ENT FAEC ID consulted Started on Meropenem Iv since wound cx growing ESBL and WBC count trending up to 16 K Keep NPO Transfer to [facility] 2. Infected Surgical wound with suspected fistula formation wound cx positive for ESBl place on contact isolation biliary output from site of feeding tube has decreased last 12hours since patinet started NPO Keep NPO and continue IVF Monitor output daily from surgical site continue Meropenem and vanco Replace electrolytes and monitor daily Surgery consulted Transfer to [facility] 3. Hypothyroid continue Levothyroxine 4. GERD on Pepcid 40mg PO daily 5. Hypokalemia most likely due to GI loss replace in IVF and PO 6. Transaminitis most likely related with post op changes Follow up with her surgeon keep NPO 7. Anemia Hgb 9 most likely secondary to blood loss during recent surgery 8. DVT prophylaxis venodyne boots while in bed
--- NOTE | 2017-10-23 16:55 | CP.PCM.PN ---
Subjective - Date & Time of Evaluation Date of Evaluation: 10/23/17 Time of Evaluation: 09:00 - Subjective Subjective: admitted in telemetry for possible infected surgical wound and fistula Objective - Vital Signs/Intake and Output Vital Signs (last 24 hours): Temp Pulse Resp BP Pulse Ox 98 F 84 18 131/81 94 L 10/23/17 16:06 10/23/17 16:06 10/23/17 16:06 10/23/17 16:06 10/23/17 16:06 Intake and Output: 10/23/17 10/23/17 06:59 18:59 Intake Total 1200 Output Total 50 Balance 1150 - Medications Medications: Current Medications Acetaminophen (Tylenol 325mg Tab) 650 mg PO Q6 PRN PRN Reason: Fever >100.4 F Last Admin: 10/20/17 20:52 Dose: 650 mg Docusate Sodium (Colace) 100 mg PO BID [facility] Last Admin: 10/23/17 08:59 Dose: Not Given Ergocalciferol (Drisdol 50,000 Intl Units Cap) 1 cap PO QWK [facility] Home Med (Lipase/Protease/Amylase [Creon Dr 24,000 Units Capsule]) 1 cap PO TID [facility] Last Admin: 10/23/17 12:10 Dose: Not Given Vancomycin HCl 1 gm/ Sodium (Chloride) 250 mls @ 166.667 mls/hr IVPB Q12 [facility] PRN Reason: Protocol Last Admin: 10/23/17 09:02 Dose: 166.667 mls/hr Meropenem 1 gm/ Sodium (Chloride) 100 mls @ 100 mls/hr IVPB Q8 [facility] PRN Reason: Protocol Last Admin: 10/23/17 08:59 Dose: 100 mls/hr Lactobacillus Acidophilus (Bacid Acidophilus) 1 cap PO BID [facility] Last Admin: 10/23/17 08:59 Dose: Not Given Levothyroxine Sodium (Synthroid) 50 mcg PO DAILY@0630 [facility] Last Admin: 10/23/17 09:01 Dose: Not Given Metoclopramide HCl (Reglan) 5 mg IVP Q8 [facility] Last Admin: 10/23/17 09:01 Dose: 5 mg Ondansetron HCl (Zofran Inj) 4 mg IVP Q6 PRN PRN Reason: Nausea/Vomiting Pantoprazole Sodium (Protonix Ec Tab) 40 mg PO DAILY [facility] Last Admin: 10/23/17 09:00 Dose: Not Given - Labs Labs: 10/22/17 07:00 10/22/17 07:00 - Constitutional Appears: Non-toxic, Chronically Ill - Head Exam Head Exam: NORMOCEPHALIC - Eye Exam Eye Exam: absent: Scleral icterus - ENT Exam ENT Exam: Mucous Membranes Dry - Neck Exam Neck Exam: absent: Lymphadenopathy - Respiratory Exam Respiratory Exam: Decreased Breath Sounds - Cardiovascular Exam Cardiovascular Exam: REGULAR RHYTHM - GI/Abdominal Exam GI & Abdominal Exam: Distended - Rectal Exam Rectal Exam: Deferred - Exam Exam: NORMAL INSPECTION - Extremities Exam Extremities Exam: absent: Pedal Edema - Back Exam Back Exam: absent: CVA tenderness (L), CVA tenderness (R) - Neurological Exam Neurological Exam: Alert, Awake, Oriented x3 Assessment and Plan (1) Intra-abdominal infection Status: Acute (2) Sepsis Status: Acute - Assessment and Plan (Free Text) Assessment: admitted in telemetry for possible infected surgical wound and fistula Plan: blood + ESBL E coli wound + Enterococcus and ESBL E coli will need min 14 days iv rx, ongoing wound care , further surgical eval
--- NOTE | 2017-10-24 08:31 | CP.PCM.DIS ---
Provider - Provider Date of Admission: 10/20/17 13:45 Attending physician: Christoph Mosher MD Time Spent in preparation of Discharge (in minutes): 30 Diagnosis - Discharge Diagnosis (1) Intra-abdominal infection Status: Acute Hospital Course - Lab Results Lab Results: Micro Results 10/22/17 11:36 Naris MRSA Culture (Admit) - Final MRSA NOT DETECTED 10/20/17 09:50 Blood-Venous Blood Culture - Preliminary NO GROWTH AFTER 3 DAYS 10/20/17 10:25 Blood-Venous Blood Culture - Final Escherichia Coli 10/20/17 10:25 Blood-Venous Gram Stain - Final 10/20/17 20:08 Naris MRSA Culture (Admit) - Final MRSA NOT DETECTED 10/20/17 18:00 Abdomen Gram Stain - Final 10/20/17 18:00 Abdomen Wound Culture - Final Escherichia Coli Enterococcus Faecalis 10/20/17 11:00 Urine,Clean Catch Urine Culture - Final No Growth (<1,000 CFU/ML) Most Recent Lab Values WBC 16.0 K/uL (4.8-10.8) H D 10/22/17 07:00 RBC 3.88 Mil/uL (3.80-5.20) 10/22/17 07:00 Hgb 11.2 g/dL (12.0-16.0) L D 10/22/17 07:00 Hct 32.8 % (34.0-47.0) L 10/22/17 07:00 MCV 84.7 fl (81.0-99.0) 10/22/17 07:00 MCH 29.0 pg (27.0-31.0) 10/22/17 07:00 MCHC 34.2 g/dL (33.0-37.0) 10/22/17 07:00 RDW 13.4 % (11.5-14.5) 10/22/17 07:00 Plt Count 306 K/uL (130-400) D 10/22/17 07:00 MPV 8.9 fl (7.2-11.7) 10/21/17 04:50 Neut % (Auto) 91.5 % (50.0-75.0) H 10/21/17 04:50 Lymph % (Auto) 4.0 % (20.0-40.0) L 10/21/17 04:50 Crisp % (Auto) 4.1 % (0.0-10.0) 10/21/17 04:50 Eos % (Auto) 0.2 % (0.0-4.0) 10/21/17 04:50 Baso % (Auto) 0.2 % (0.0-2.0) 10/21/17 04:50 Neut # (Auto) 9.1 K/uL (1.8-7.0) H 10/21/17 04:50 Lymph # (Auto) 0.4 K/uL (1.0-4.3) L 10/21/17 04:50 Crisp # (Auto) 0.4 K/uL (0.0-0.8) 10/21/17 04:50 Eos # (Auto) 0.0 K/uL (0.0-0.7) 10/21/17 04:50 Baso # (Auto) 0.0 K/uL (0.0-0.2) 10/21/17 04:50 Neutrophils % (Manual) 94 % (42-75) H 10/21/17 04:50 Band Neutrophils % 4 % (0-2) H 10/20/17 10:25 Lymphocytes % (Manual) 4 % (20-50) L 10/21/17 04:50 Monocytes % (Manual) 2 % (0-10) 10/21/17 04:50 Platelet Estimate Normal (NORMAL) 10/21/17 04:50 Plt Clumps, EDTA Present 10/20/17 10:25 RBC Morphology Normal (NORMAL) 10/21/17 04:50 Polychromasia Slight 10/20/17 10:25 Hypochromasia (manual) Slight 10/20/17 10:25 Target Cells Slight 10/20/17 10:25 pO2 28 mm/Hg (30-55) L 10/20/17 10:02 VBG pH 7.51 (7.32-7.43) H 10/20/17 10:02 VBG pCO2 32 mmHg (40-60) L 10/20/17 10:02 VBG HCO3 26.3 mmol/L 10/20/17 10:02 VBG Total CO2 26.5 mmol/L (22-28) 10/20/17 10:02 VBG O2 Sat (Calc) 67.4 % (40-65) H 10/20/17 10:02 VBG Base Excess 3.0 mmol/L (0.0-2.0) H 10/20/17 10:02 VBG Potassium 3.4 mmol/L (3.6-5.2) L 10/20/17 10:02 Sodium 129.0 mmol/L (132-148) L 10/20/17 10:02 Chloride 97.0 mmol/L (98-107) L 10/20/17 10:02 Glucose 140 mg/dL (65-105) H 10/20/17 10:02 Lactate 1.5 mmol/L (0.7-2.1) 10/20/17 10:02 FiO2 21.0 % 10/20/17 10:02 Sodium 138 mmol/l (132-148) 10/22/17 07:00 Potassium 3.1 MMOL/L (3.6-5.0) L 10/22/17 07:00 Chloride 102 mmol/L (98-107) 10/22/17 07:00 Carbon Dioxide 19 mmol/L (22-30) L 10/22/17 07:00 Anion Gap 20 (10-20) 10/22/17 07:00 BUN 8 mg/dl (7-17) 10/22/17 07:00 Creatinine 0.5 mg/dl (0.7-1.2) L 10/22/17 07:00 Est GFR ( Amer) > 60 10/22/17 07:00 Est GFR (Non-Af Amer) > 60 10/22/17 07:00 Random Glucose 60 mg/dL (65-105) L 10/22/17 07:00 Calcium 8.1 mg/dL (8.4-10.2) L 10/22/17 07:00 Total Bilirubin 1.0 mg/dl (0.2-1.3) 10/22/17 07:00 AST 63 U/L (14-36) H 10/22/17 07:00 ALT 76 U/L (9-52) H 10/22/17 07:00 Alkaline Phosphatase 191 U/L (38-126) H D 10/22/17 07:00 Total Protein 5.6 G/DL (6.3-8.2) L 10/22/17 07:00 Albumin 2.7 g/dL (3.5-5.0) L D 10/22/17 07:00 Globulin 2.9 gm/dL (2.2-3.9) 10/22/17 07:00 Albumin/Globulin Ratio 0.9 (1.0-2.1) L 10/22/17 07:00 Lipase 155 U/L (23-300) 10/20/17 12:40 TSH 3rd Generation 1.44 mIU/ML (0.46-4.68) 10/21/17 04:50 Venous Blood Potassium 3.4 mmol/L (3.6-5.2) L 10/20/17 10:02 Urine Color Yellow (YELLOW) 10/20/17 16:09 Urine Clarity Slighty-cloudy (Clear) 10/20/17 16:09 Urine pH 6.0 (5.0-8.0) 10/20/17 16:09 Ur Specific [place] 1.017 (1.003-1.030) 10/20/17 16:09 Urine Protein Negative mg/dL (NEGATIVE) 10/20/17 16:09 Urine Glucose (UA) Neg mg/dL (Normal) 10/20/17 16:09 Urine Ketones Trace mg/dL (NEGATIVE) 10/20/17 16:09 Urine Blood Negative (NEGATIVE) 10/20/17 16:09 Urine Nitrate Negative (NEGATIVE) 10/20/17 16:09 Urine Bilirubin Negative (NEGATIVE) 10/20/17 16:09 Urine Urobilinogen 4.0 mg/dL (0.2-1.0) H 10/20/17 16:09 Ur Leukocyte Esterase Neg Nila/uL (Negative) 10/20/17 16:09 Urine RBC (Auto) 6 /hpf (0-3) H 10/20/17 16:09 Urine Microscopic WBC 3 /hpf (0-5) 10/20/17 16:09 Urine Bacteria Rare (<OCC) 10/20/17 16:09 - Hospital Course Hospital Course: 67 yo female with history of Hypothyroidism, GERD and Pancreatic Cyst came in because of fever, chills, nausea and vomiting since the night before Patient had Whipple's procedure at [facility] in October 07 because of Pancreatic Cyst which was getting bigger. Cyst turned out to be benign. Post op days were uneventful and she was discharged in stable condition with a surgical drain on October 14. 2 days after discharge, patient started to have nausea and vomiting associated with low grade fever. She was seen in [facility] ER on October 17 and was found to be dehydrated. Patient's surgeon, Dr Veliz was called and did not advise admission but recommended just to hydrate patient. She was seen the next day by the surgeon and the drain was removed. She was started on PO Cephalexin 500mg BID. Last night nausea and vomiting recurred accompanied with fever and chills. The site where patient had feeding tube has continuos bile output Patient found to be febrile Tmax 102 , tachycardic , WBC [address] abdomen showed post operative changes She was admitted in telemetry for possible infected surgical wound and fistula , started on IV vanco and zosyn, cultures sent and surgery consulted As per surgery patient need to be transferred to [facility] where her surgeon is. Called her surgeon and discussed with his faculty research assistant . Patient has been accepted and will be transferred under her surgeons care as soon as bed is available will keep NPO for now Started D5 1/2 NS with 40 MEQ of KCl wound cultures growing ESBl and blood cx positive for gram negative heydi called ID on consult and patient started on Meropenem. will d/c Zosyn and Continue vancomycin IV Placed on contact isolation . At present output for ostomy has decreased. Start ice chips.Waiting transfer Pt accepted to [facility] and was transferred during the night. No exam. 1.Bacteremia Blood cx positive for ECOLI ESBL/ENT FAEC ID consulted Started on Meropenem Iv since wound cx growing ESBL and WBC count trending up to 16 K Keep NPO Transferred to [facility] 2. 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 Hypothyroid continue Levothyroxine 4. GERD on Pepcid 40mg PO daily 5. Hypokalemia most likely due to GI loss replace in IVF and PO 6. Transaminitis most likely related with post op changes Follow up with her surgeon keep NPO 7. Anemia Hgb 9 most likely secondary to blood loss during recent surgery 8. DVT prophylaxis venodyne boots while in bed Discharge Exam - Head Exam Head Exam: NORMOCEPHALIC Discharge Plan - Discharge Medications Prescriptions: Piperacillin Sodium/Tazobactam [Zosyn 3.375 Gram Vial] 3.375 gm IV Q6 #30 vial Vancomycin/0.9 % Sod Chloride [Vanco 1 Gram/150 ml-0.9% NaCl] 1 gm IV Q12 #28 plast..bag - Follow Up Plan Condition: STABLE Disposition: Trans to Other Acute Care Hosp Instructions: Sepsis (DC), Sepsis (GEN) Additional Instructions: Follow up with her surgeon
[2017-10-24 11:14] VITALS: BP 129/74; TEMP 98.7
== END 2017-10-23 22:30 | disposition short-term general hospital (02) | DRG 862 ==
LOC: H.ER 09:10 → H.ERHOLD 13:45 → H.ICU/CCU 18:54 → H.MEDSURG1 10-22 01:22
DX: T81.4XXA Infection following a procedure, initial encounter (principal); A41.51 Sepsis due to Escherichia coli [E. coli]; T81.83XA Persistent postprocedural fistula, initial encounter; B95.2 Enterococcus as the cause of diseases classified elsewhere; Z16.12 Extended spectrum beta lactamase (ESBL) resistance; D50.0 Iron deficiency anemia secondary to blood loss (chronic); E87.6 Hypokalemia; E86.0 Dehydration; Y83.8 Other surgical procedures as the cause of abnormal reaction of the patient, or of later complication, without mention of misadventure at the time of the procedure; E03.9 Hypothyroidism, unspecified; K21.9 Gastro-esophageal reflux disease without esophagitis; R74.0 Nonspecific elevation of levels of transaminase and lactic acid dehydrogenase [LDH]; Z90.411 Acquired partial absence of pancreas; Z93.3 Colostomy status; Z88.2 Allergy status to sulfonamides; Y92.9 Unspecified place or not applicable